=== PATIENT | male | born 1950 | race Caucasian/White ===

== ENCOUNTER → 2016-05-20 | Outpatient (CLI) | payer MEDICARE, BC ==
--- NOTE | 2016-05-20 13:45 | CT ---
EXAMINATION TYPE: CT angio abd aorta wo/w con DATE OF EXAM: 05/20/2016 12:11 PM COMPARISON: Previous study dated 06/03/2015 HISTORY: AAA CT DLP: 1266 mGycm Automated exposure control for dose reduction was used. TECHNIQUE: Performed with IV Contrast, patient injected with 100 mL of Omnipaque 350. Helical acquisition through the abdomen and pelvis was obtained with and without intravenous contrast . The data was reformatted in axial, coronal and sagittal projections. Three-dimensional volume rende red imaging was also performed at the CT scanner. FINDINGS: Visualized portions of the lungs are clear. There is no pleural or pericardial fluid. Within the abdomen, the liver, spleen and gallbladder are normal. Both adrenal glands are normal. Both kidneys demonstrate function and appear morphologically normal. The pancreas is unremarkable. The patient infrarenal abdominal aortic aneurysm which previously measured 4.8 cm today measures 5.2 cm in greatest transverse diameter. It extends to the bifurcation. Both common iliac arteries are ane urysmal with the right measuring 1.8 cm and the left measuring 1.5 cm. There is no significant retroperitoneal adenopathy. There is no iliac or inguinal adenopathy. There is a right hip prosthesis in place causing streak artifact within the pelvis. The bladder is pa rtially obscured. There are scattered diverticula within the sigmoid: The scattered diverticula elsewhere within the le ft side of the colon. The appendix appears normal. Small bowel loops appear normal. No free air and no free fluid is seen. There is a bilateral lysis at L5 with a grade 1 spondylolisthesis of L5 on S1. There is mild, diffuse hypertrophic spondylosis. IMPRESSION: 1. ENLARGING INFRARENAL ABDOMINAL AORTIC ANEURYSM WHICH NOW MEASURES 5.2 CM IN GREATEST TRANSVERSE DI AMETER. 2. 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 3. MINIMAL UNCOMPLICATED DIVERTICULOSIS OF THE SIGMOID COLON. 4. BILATERAL LYSIS AT L5 WITH A GRADE 1 SPONDYLOLISTHESIS OF L5 ON S1.
== END ==
LOC: RADCTMAIN 11:30
PROVIDERS: ATTEND Thoracic Surgery (Cardiothoracic Vascular Surgery)
DX: I71.4 Abdominal aortic aneurysm, without rupture (principal); K57.30 Diverticulosis of large intestine without perforation or abscess without bleeding
CPT/HCPCS: 75635; Q9967

== ENCOUNTER 2016-07-26 17:09 | Emergency (ER) | payer MEDICARE, BC ==
[2016-07-26 17:29] VITALS: TEMP 97.5
--- NOTE | 2016-07-26 19:00 | ED ---
General Adult HPI - General Chief complaint: Abdominal Pain Stated complaint: rectal bleeding/constipated Time Seen by Provider: 07/26/16 18:25 Source: patient, RN notes reviewed Mode of arrival: ambulatory Limitations: no limitations - History of Present Illness Initial comments: patient is a 65-year-old male presents to the emergency room for evaluation constipation. Patient states he hasn't had a bowel movement in the past 2 days. Patient states he tried taking Dulcolax laxative earlier this afternoon with no relief of symptoms. Patient does state he is still passing gas. Patient states that he is having rectal discomfort, itching and bleeding. Patient does state he has history of hemorrhoids. Patient states his hemorrhoids are acting up because of constipation. Patient denies any changes in diet. Patient denies taking any narcotics. Patient denies abdominal pain. Patient denies nausea vomiting. Patient denies history of abdominal surgeries or bowel obstruction. Patient denies chest pain or shortness of breath. Patient states he just wants to have a bowel movement. - Related Data Home Medications Medication Instructions Recorded Confirmed Aspirin 325 mg PO DAILY 07/26/16 07/26/16 Atenolol [Tenormin] 50 mg PO BID 07/26/16 07/26/16 Clopidogrel Bisulfate [Plavix] 75 mg PO DAILY 07/26/16 07/26/16 Colchicine [Colcrys] 0.6 mg PO DAILY PRN 07/26/16 07/26/16 Isosorbide Mononitrate ER [Imdur] 30 mg PO DAILY 07/26/16 07/26/16 Lisinopril [Prinivil] 10 mg PO DAILY 07/26/16 07/26/16 Nitroglycerin Sl Tabs [Nitrostat] 0.4 mg SUBLINGUAL Q5M PRN 07/26/16 07/26/16 Omeprazole [PriLOSEC] 20 mg PO DAILY 07/26/16 07/26/16 Rosuvastatin Calcium [Crestor] 40 mg PO HS 07/26/16 07/26/16 Previous Rx's Medication Instructions Recorded Hydrocortisone Suppository 25 mg RECTAL BID PRN #10 supp 07/26/16 [Anusol-Hc] Allergies Allergy/AdvReac Type Severity Reaction Status Date / Time No Known Allergies Allergy Verified 07/26/16 18:46 Review of Systems ROS Statement: Those systems with pertinent positive or pertinent negative responses have been documented in the HPI. ROS Other: All systems not noted in ROS Statement are negative. Past Medical History Past Medical History: Coronary Artery Disease (CAD), Hyperlipidemia, Hypertension, Myocardial Infarction ([place]) Additional Past Medical History / Comment(s): AAA History of Any Multi-Drug Resistant Organisms: None Reported Past Surgical History: Heart Catheterization With Stent, Joint Replacement Additional Past Surgical History / Comment(s): right hip replacement Past Psychological History: No Psychological Hx Reported Smoking Status: Former smoker Past Alcohol Use History: Occasional Past Drug Use History: None Reported General Exam - General Exam Comments Initial Comments: laying in exam room, no distress. Limitations: no limitations General appearance: alert, in no apparent distress Head exam: Present: atraumatic, normocephalic, normal inspection Eye exam: Present: normal appearance ENT exam: Present: normal exam Neck exam: Present: normal inspection Respiratory exam: Present: normal lung sounds bilaterally. Absent: respiratory distress Cardiovascular Exam: Present: regular rate, normal rhythm, normal heart sounds GI/Abdominal exam: Present: soft, normal bowel sounds. Absent: distended, tenderness, guarding, rebound, rigid Rectal exam: Present: normal rectal tone, hemorrhoids Extremities exam: Present: normal inspection Back exam: Present: normal inspection Neurological exam: Present: alert, oriented X3, CN II-XII intact, normal gait Psychiatric exam: Present: normal affect, normal mood Skin exam: Present: warm, dry, intact, normal color. Absent: rash Course Vital Signs 07/26/16 17:25 Temperature 97.5 F L Pulse Rate 72 Respiratory 20 Rate Blood Pressure 102/51 O2 Sat by Pulse 98 Oximetry Medical Decision Making - Medical Decision Making Patient is a 65-year-old male presents emergency room for evaluation of constipation. Patient given an enema was able to have a bowel movement. Patient states he is feeling better. Advised patient to continue drinking plenty of water and follow up with primary care provider. Return parameters discussed. Case discussed with Dr. Avalos. - Radiology Data Radiology results: report reviewed, image reviewed Disposition Clinical Impression: Constipation Disposition: HOME SELF-CARE Condition: Good Instructions: Constipation (ED), High Fiber Diet (ED) Additional Instructions: Drink plenty of water. Please follow up with primary care provider in 1-2 days. If any new symptom arises or symptoms worsen, return to ER as soon as possible. Prescriptions: Hydrocortisone Suppository [Anusol-Hc] 25 mg RECTAL BID PRN #10 supp PRN Reason: Pain Referrals: Donny Cottrell MD [Primary Care Provider] - 1-2 days
--- NOTE | 2016-07-26 19:05 | XR ---
EXAMINATION TYPE: XR abdomen 2V DATE OF EXAM: 07/26/2016 6:56 PM COMPARISON: NONE HISTORY: Rectal bleeding TECHNIQUE: 3 views FINDINGS: There is no sign of intestinal obstruction or pneumoperitoneum. Fecal pattern is normal. Th ere is no sign of a mass. There are no pathologic calcifications over the kidneys. Right hip prosthes is is noted. Lung bases are clear. IMPRESSION: Nonacute abdomen. Curvilinear calcification is noted in the abdomen related to abdominal aortic aneurysm that is also demonstrated on CT scan of 05/20/2016.
[2016-07-26 20:20] VITALS: BP 155/88; PULSE 68; RESP 18
== END 2016-07-26 20:25 | disposition home or self-care (01) ==
LOC: EC 17:09
DX: K59.00 Constipation, unspecified (principal); I25.10 Atherosclerotic heart disease of native coronary artery without angina pectoris; E78.5 Hyperlipidemia, unspecified; I10 Essential (primary) hypertension; I25.2 Old myocardial infarction; Z87.891 Personal history of nicotine dependence; Z79.01 Long term (current) use of anticoagulants; Z79.82 Long term (current) use of aspirin; Z79.899 Other long term (current) drug therapy
CPT/HCPCS: 74020; 99284

== ENCOUNTER 2016-08-19 07:45 | Inpatient (IN) | payer MEDICARE, BC ==
[2016-08-17 09:54] VITALS: BMI 25.8
[~2016-08-19 07:45] MED LIST: ALPRAZolam 0.25 MG TAB PO PRN; SODIUM CHLORIDE 0.9% 1,000 ML in EMPTY BAG 1 BAG IV ONE
[2016-08-19] MEDS ORDERED: LIDOCAINE URO-JET JELLY 2% 5 ML KIT ONE (10:35)
[2016-08-19] MEDS ORDERED: PROPOFOL 10 MG/ML 20 ML VIAL IV ONE (11:20)
[2016-08-19] MEDS ORDERED: HEPARIN SODIUM,PORCINE 5,000 UNIT/ML 1 ML VIAL ONE (11:20)
[2016-08-19] MEDS ORDERED: MIDAZOLAM 2 MG/2 ML VIAL ONE (11:20)
[2016-08-19] MEDS ORDERED: HYDROmorphone (PF) 1 MG/ML ONE (11:20)
[2016-08-19] MEDS ORDERED: fentaNYL (PF) 50 MCG/ML 2 ML AMP ONE (11:20)
[2016-08-19] MEDS ORDERED: GLYCOPYRROLATE 0.2 MG/ML 2 ML VIAL ONE (11:20)
[2016-08-19] MEDS ORDERED: KETAMINE 10 MG/ML 20 ML VIAL ONE (11:20)
[2016-08-19] MEDS ORDERED: ePHEDrine 50 MG/ML 1 ML AMP ONE (11:20)
[2016-08-19] MEDS ORDERED: LIDOCAINE 1% INJ 10MG/ML (20 ML MDV) ONE (11:20)
[2016-08-19] MEDS: LIDOCAINE 2% INJ 20 MG/ML SQ ONE ×2 (11:55→12:20)
[2016-08-19] MEDS ORDERED: IODIXANOL 320 MG/ML 100 ML INTRAARTER ONE (14:55)
[2016-08-19] MEDS ORDERED: SODIUM CHLORIDE 0.9% 1,000 ML IV SCH (15:45)
[2016-08-19] MEDS ORDERED: HYDROCORTISONE SUPPOSITORY 25 MG SUPP RECTAL PRN (15:47)
[2016-08-19] MEDS ORDERED: COLCHICINE 0.6 MG TAB PO PRN (15:47)
[2016-08-19] MEDS ORDERED: NITROGLYCERIN SL TABS 0.4 MG TAB SUBLINGUAL PRN (15:47)
--- NOTE | 2016-08-19 16:03 | P.PCN ---
Date of Procedure: 08/19/16 Preoperative Diagnosis: Postoperative Diagnosis: Procedure(s) Performed: Implants: Indications for Procedure: Operative Findings: Endovascular repair of abdominal aortic aneurysm Performing physician: Mateo Harding M.D., counter attendant Procedure performed #1 an abdominal aortogram #2 bilateral common and external iliacs angiogram #3 bilateral common femoral arteries angiogram #4 intravascular ultrasound of the aorta and bilateral iliacs #5 intravascular repair of abdominal aortic aneurysm with a stent graft Approach Right and left common femoral arteries Complication None Level of sedation The procedure was performed under general anesthesia and the patient was intubated. Procedure description After obtaining an informed consent the patient was brought to the cardiac laborer golf course. Sedation was initiated with anesthesiologist in the room using propofol. During the procedure the patient was intubated. The right common femoral artery as well as left common femoral artery was cannulated using micropuncture technique, the micropuncture wire passed easily, then I placed a 14-Senegalese sheath in the right common femoral artery. I did place a 10-Senegalese sheath in the left common femoral artery. Before to both sheaths were placed I did perform bilateral common femoral arteries angiogram to confirm the entry site to be in the common femoral artery segments. At that point anticoagulation was initiated and the patient was given a total of 8000s units of heparin IV. I did perform an abdominal aortic angiogram using 5-Senegalese pigtail catheter which was placed at the level of the renal arteries. After that I did load the 23 mm operation aortic body delivery system over the guidewire which was super stiff guidewire. I inserted the delivery system into the aorta and it was advanced to the implant radiopaque markers with about 1 cm proximal to the intended landing side. I did orient the aortic body to desired position for appropriate axis to contralateral aortic body limp. I retracted the delivery system outer sheath and told the sheath retraction knob met handle I verified that the radiopaque markers and long delivery system radiopaque markers were in correct position I deployed first segment of the proximal stent by turning first stent knob counterclockwise. Precisely I did reposition the implant radiopaque markers at final proximal landing side. I used contrast injection to confirm implant position relative to renal arteries. I retracted the angiographic catheter away from the proximal stent. I deployed the reminder of the proximal stent by turning second stent degrees counterclockwise and then steadily pulled. I removed the green filled From performing her injection port and I attached fille syringe to it I used fluoroscopy to intermittently observe filling of the graft with radiopaque fill polymer. After that I loaded 18 I1 60 iliac limb delivery system over the contralateral guidewire which was super stiff Amplatzer wire. I used continuous fluoroscopy guidance to insert iliac limb delivery system into the contra lateral limb. I confronted proximal and distal iliac limb radiopaque marker where at the appropriate location. I did after that to retract the sheath to deploy iliac limb while maintaining catheter and the position. For the ipsilateral limb I did insert 22 x 160 limb delivery system. I used continuous fluoroscopy guidance to insert iliac limb delivery system into the contra lateral limb. I confronted proximal and distal iliac limb radiopaque marker where at the appropriate location. I did after that to retract the sheath to deploy iliac limb while maintaining catheter and the position. Please refer to note regarding repairing the aneurysm of the right iliac artery. Description of Procedure:
[2016-08-19 16:10] LABS: Basophils % (A) 0 %; CHCM 32.2; Eosinophils # (A) 0.3 k/uL (0-0.7); Eosinophils % (A) 3 %; HDW 2.14; HGB 11.8 gm/dL (13.0-17.5); Luc # (Auto) 0.12; Luc % (Auto) 1; Lymphocytes # (A) 1.3 k/uL (1.0-4.8); Lymphocytes % (A) 12 %; MCH 32.9 pg (25.0-35.0); Macrocytosis Moderate; Mean Platelet Volume 7.4; Monocytes # (A) 0.5 k/uL (0-1.0); Monocytes % (A) 5 %; Neutrophils # (A) 7.8 k/uL (1.3-7.7); Neutrophils % (A) 78 %; RBC 3.59 m/uL (4.30-5.90); RDW 14.5 % (11.5-15.5); WBC (Perox) 10.34
[2016-08-19 16:36] LABS: Anion Gap 6 mmol/L; Blood Urea Nitrogen 9 mg/dL (9-20); Calcium 8.3 mg/dL (8.4-10.2); Carbon Dioxide 21 mmol/L (22-30); Chloride 112 mmol/L (98-107); Glucose 108 mg/dL (74-99); Non-African American GFR(MDRD) >60 (>60 ml/min/1.73 sqM); Potassium 3.9 mmol/L (3.5-5.1); Sodium 139 mmol/L (137-145)
--- NOTE | 2016-08-19 16:43 | P.OP ---
Date of Procedure: 08/19/16 Preoperative Diagnosis: Right iliac artery aneurysm Postoperative Diagnosis: Right iliac artery aneurysm and left femoral artery injury Procedure(s) Performed: Endo-grafting repair of right external iliac artery aneurysm and left femoral artery exposure and primary repair of common femoral artery injury Implants: Anesthesia: GETA Surgeon: Brett Blank Estimated Blood Loss (ml): 50 Pathology: none sent Condition: stable Indications for Procedure: Operative Findings: Description of Procedure: This patient and a hybrid endo-grafting suite it Archie Fernandez under the care of Dr. Harding for the endo-grafting repair of a abdominal aortic aneurysm during the procedure I was asked to involve myself as a vascular surgeon to deal with a right iliac artery aneurysm as well as a primary repair of a common femoral artery cannulation site first with the guidewire access through the right common femoral artery and sheath and iliac artery aneurysm was completely covered when I passed the aortic endo-grafting Endologix limb extension device into the right iliac artery we used a 12 mm a 140 mm ovulation X device the deployment was under fluoroscopic guidance and we covered the iliac aneurysm the internal iliac artery that can completely previously thrombosed once this was completed and Dr. Harding repaired the right common femoral with a Perclose device I was asked to cut down and expose the left common femoral artery to remove the sheath and to repair the common femoral artery injury this was done through a small incision electrocautery was utilized for hemostasis the sheath and guidewire were removed after we controlled the common femoral artery at the inguinal ligament the profunda and the superficial femoral arteries as well the hole in the Distal common femoral artery was primarily repaired with interrupted 60 and 5-0 Prolene sutures excellent backbleeding and venting was accomplished and inflow into the profundus and superficial femoral arteries was accomplished and documented with arterial Doppler intraoperatively once this was accomplished the wound was irrigated with antibiotic solution and closed in layers with Vicryl sutures and Steri-Strips C end of an operative report on patient Rob hairston Dr. Blank dictating from Julissa Fernandez on Archie thank you for typing
[2016-08-19 16:44] LABS: Glucose,Whole Blood 104 mg/dL (75-99)
[2016-08-19] MEDS: ATORVASTATIN 80 MG TAB PO SCH (21:52)
[2016-08-20 04:50] LABS: Non-African American GFR(MDRD) >60 (>60 ml/min/1.73 sqM)
[2016-08-20 06:28] LABS: ALT 19 U/L (21-72); AST 20 U/L (17-59); Alkaline Phosphatase 53 U/L (38-126); Anion Gap 6 mmol/L; Blood Urea Nitrogen 9 mg/dL (9-20); Carbon Dioxide 21 mmol/L (22-30); Chloride 107 mmol/L (98-107); Glucose 93 mg/dL (74-99); Potassium 3.6 mmol/L (3.5-5.1); Sodium 134 mmol/L (137-145); Total Bilirubin 0.8 mg/dL (0.2-1.3)
[2016-08-20] MEDS ORDERED: Potassium Replacement Protocol 1 EACH MISC MISCELLANE PRN (06:58)
[2016-08-20] MEDS ORDERED: HYDROmorphone 1 MG/ML 1 ML SYRINGE IVP PRN (06:59)
[2016-08-20] MEDS ORDERED: POTASSIUM CHLORIDE ER 20 MEQ TAB.ER PO ONE (07:00)
[2016-08-20 07:12] LABS: Basophils % (A) 0 %; CH 33.9; CHCM 32.5; Eosinophils # (A) 0.1 k/uL (0-0.7); Eosinophils % (A) 2 %; HCT 31.1 % (39.0-53.0); HDW 2.11; Luc # (Auto) 0.11; Luc % (Auto) 1; Lymphocytes # (A) 0.7 k/uL (1.0-4.8); Lymphocytes % (A) 7 %; MCH 33.6 pg (25.0-35.0); MCV 104.9 fL (80.0-100.0); Macrocytosis Moderate; Mean Platelet Volume 8.5; Monocytes # (A) 0.7 k/uL (0-1.0); Monocytes % (A) 7 %; Neutrophils # (A) 7.8 k/uL (1.3-7.7); Neutrophils % (A) 82 %; RBC 2.96 m/uL (4.30-5.90); RDW 14.5 % (11.5-15.5); WBC 9.5 k/uL (3.8-10.6); WBC (Perox) 9.26
[2016-08-20] MEDS: PANTOPRAZOLE 40 MG TABLET PO SCH (07:44)
[2016-08-20] MEDS: LISINOPRIL 10 MG TAB PO SCH (07:45)
[2016-08-20] MEDS: amLODIPine 5 MG TAB PO SCH (07:45)
[2016-08-20] MEDS: ASPIRIN 325 MG TAB PO SCH (07:45)
[2016-08-20] MEDS: ISOSORBIDE MONONITRATE ER 30 MG TAB.ER.24H PO SCH (07:45)
--- NOTE | 2016-08-20 07:52 | IR ---
Fluoroscopy HISTORY: Pain 38.2 minutes fluoroscopy time supplied to the referring clinician. 750 intraoperative C-arm images d ocument the procedure. See dictated report from cardiology.
--- NOTE | 2016-08-20 08:56 | P.PN ---
Subjective Principal diagnosis: Right iliac artery aneurysm and left femoral artery injury POD #1 endograft and repair of right external iliac artery aneurysm and left femoral artery exposure and primary repair of common femoral artery injury Patient is currently ambulating in the velez in no acute distress. Objective - Vital Signs Vital signs: Vital Signs Temp 98.9 F 08/20/16 04:00 Pulse 65 08/20/16 07:00 Resp 16 08/20/16 07:00 BP 126/68 08/20/16 07:00 Pulse Ox 93 L 08/20/16 07:00 Intake & Output 08/19/16 08/20/16 08/20/16 18:59 06:59 18:59 Intake Total 400 1200 100 Output Total 200 360 Balance 200 840 100 Weight 74 kg Intake: IV 400 1200 100 Sodium Chloride 0.9% 1, 200 1200 100 000 ml @ 100 mls/hr IV . Q10H [facility] Rx#:[id number] Output: Urine 100 360 Estimated Blood Loss 100 Other: Voiding Method Indwelling Catheter Indwelling Catheter # Voids 0 0 - Constitutional General appearance: Present: cooperative, no acute distress - Respiratory Details: Lungs sounds clear to auscultation. Respirations even, nonlabored. Currently on room air with oxygen saturation 93%. - Cardiovascular Details: S1, S2 present. Regular rate and rhythm, normal sinus rhythm on telemetry. Bilateral groins soft, nontender, covered with clean, dry, intact dressings. - Gastrointestinal Gastrointestinal Comment(s): Abdomen soft, nontender, nondistended. Active bowel sounds 4 quadrants. Tolerating diet. - Genitourinary Genitourinary Comment(s): Lewis discontinued this morning. Patient has voided clear, yellow urine. - Musculoskeletal Musculoskeletal: Present: gait normal, strength equal bilaterally - Psychiatric Psychiatric: Present: A&O x's 3, appropriate affect, intact judgment & insight - Allied health notes Allied health notes reviewed: nursing - Labs CBC & Chem 7: 08/20/16 04:03 08/20/16 04:03 Labs: Abnormal Lab Results - Last 24 Hours (Table) 08/19/16 08/19/16 08/19/16 Range/Units 15:56 15:56 16:42 RBC 3.59 L (4.30-5.90) m/uL Hgb 11.8 L (13.0-17.5) gm/dL Hct 38.0 L (39.0-53.0) % MCV 106.0 H (80.0-100.0) fL Plt Count (150-450) k/uL Neutrophils # 7.8 H (1.3-7.7) k/uL Lymphocytes # (1.0-4.8) k/uL Sodium (137-145) mmol/L Chloride 112 H (98-107) mmol/L Carbon Dioxide 21 L (22-30) mmol/L Glucose 108 H (74-99) mg/dL POC Glucose (mg/dL) 104 H (75-99) mg/dL Calcium 8.3 L (8.4-10.2) mg/dL Magnesium (1.6-2.3) mg/dL ALT (21-72) U/L Total Protein (6.3-8.2) g/dL Albumin (3.5-5.0) g/dL 08/20/16 08/20/16 08/20/16 Range/Units 04:03 04:03 04:03 RBC 2.96 L (4.30-5.90) m/uL Hgb 10.0 L D (13.0-17.5) gm/dL Hct 31.1 L (39.0-53.0) % MCV 104.9 H (80.0-100.0) fL Plt Count 128 L (150-450) k/uL Neutrophils # 7.8 H (1.3-7.7) k/uL Lymphocytes # 0.7 L (1.0-4.8) k/uL Sodium 134 L (137-145) mmol/L Chloride (98-107) mmol/L Carbon Dioxide 21 L (22-30) mmol/L Glucose (74-99) mg/dL POC Glucose (mg/dL) (75-99) mg/dL Calcium 8.0 L (8.4-10.2) mg/dL Magnesium 1.2 L (1.6-2.3) mg/dL ALT 19 L (21-72) U/L Total Protein 5.0 L (6.3-8.2) g/dL Albumin 2.4 L (3.5-5.0) g/dL Assessment and Plan (1) Abdominal aortic aneurysm Status: Acute (2) Aneurysm of right iliac artery Status: Acute (3) CAD (coronary artery disease) Status: Acute (4) Tobacco dependence in remission Status: Acute (5) Hypertension Status: Acute (6) Hyperlipidemia Status: Acute (7) Peripheral vascular disease Status: Acute (8) Ischemic cardiomyopathy Status: Acute Plan: 1. Continue current medical management per cardiology. 2. Encourage incentive spirometry use. 3. Increase activity, continue to ambulate in hallway. 4. Pain control with ordered medications. 5. Monitor groin site. 6. More recommendations as patient progresses. Time with Patient: Greater than 30
[2016-08-20] MEDS ORDERED: ATENOLOL 50 MG TAB PO SCH (09:00)
--- NOTE | 2016-08-20 11:24 | P.PN ---
Progress Note - Text This is a pleasant 65-year-old gentleman was admitted to the hospital yesterday and underwent successful endovascular repair of abdominal aortic aneurysm along with successful repair of right iliac aneurysm with a good angiographic results. The procedure was performed from the right and left common femoral arteries. We did the procedure from the right groin percutaneously and from the left groin we had to do cutdown of the left common femoral arteries. On follow-up with the patient today, he is doing clinically very well and he is asymptomatic. Both groins seems to be soft and nontender and without any bruises. The hemoglobin seems to be stable. I am planning to keep the patient overnight one more day, continue monitor the vitals and continue monitor the hemoglobin, and follow-up with the patient tomorrow morning for possible discharge home tomorrow.
[2016-08-20] MEDS ORDERED: Magnesium Replacement Protocol 1 EACH MISC MISCELLANE PRN (12:56)
[2016-08-20] MEDS: MAGNESIUM SULFATE-D5W PMX 1 GM in DEXTROSE/WATER 1 100ML.BAG IVPB SCH ×3 (16:02→18:41)
[2016-08-20] MEDS: ATORVASTATIN 80 MG TAB PO SCH (23:02)
[2016-08-21 06:36] LABS: Basophils % (A) 0 %; CH 33.7; Eosinophils # (A) 0.2 k/uL (0-0.7); Eosinophils % (A) 3 %; HCT 30.8 % (39.0-53.0); HDW 2.16; HGB 10.6 gm/dL (13.0-17.5); Luc # (Auto) 0.26; Luc % (Auto) 3; Lymphocytes # (A) 1.3 k/uL (1.0-4.8); Lymphocytes % (A) 15 %; MCH 35.3 pg (25.0-35.0); MCHC 34.4 g/dL (31.0-37.0); MCV 102.7 fL (80.0-100.0); Macrocytosis Slight; Mean Platelet Volume 7.6; Monocytes # (A) 0.7 k/uL (0-1.0); Monocytes % (A) 8 %; Neutrophils # (A) 6.2 k/uL (1.3-7.7); Neutrophils % (A) 71 %; RDW 14.3 % (11.5-15.5); WBC 8.7 k/uL (3.8-10.6); WBC (Perox) 8.74
[2016-08-21] MEDS: PANTOPRAZOLE 40 MG TABLET PO SCH (06:36)
[2016-08-21 06:56] LABS: Anion Gap 6 mmol/L; Blood Urea Nitrogen 9 mg/dL (9-20); Calcium 8.2 mg/dL (8.4-10.2); Carbon Dioxide 24 mmol/L (22-30); Chloride 108 mmol/L (98-107); Glucose 85 mg/dL (74-99); Magnesium 1.9 mg/dL (1.6-2.3); Non-African American GFR(MDRD) >60 (>60 ml/min/1.73 sqM); Potassium 3.7 mmol/L (3.5-5.1); Sodium 138 mmol/L (137-145)
[2016-08-21] MEDS ORDERED: BISACODYL 5 MG TABLET.DR PO STA (07:59)
[2016-08-21] MEDS ORDERED: POTASSIUM CHLORIDE ER 20 MEQ TAB.ER PO SCH (08:00)
[2016-08-21 08:05] VITALS: RESP 16; TEMP 97.4
--- NOTE | 2016-08-21 08:09 | P.PN ---
Progress Note - Text CV Surgery Nursing Principal diagnosis: Right iliac artery aneurysm and left femoral artery injury POD #2 Endo-grafting repair of right external iliac artery aneurysm and left femoral artery exposure and primary repair of common femoral artery injury. Patient awake and alert, no distress noted, he is complaining of some discomfort when he is urinating to his left groin area. He reports that he has been ambulating in the hallway without difficulty and denies any complaints of pain to his legs with ambulation. Vital Signs: Afebrile Vital Signs - 24 hr 08/20/16 08/20/16 08/20/16 08:30 09:00 09:30 Temperature Pulse Rate 68 63 59 L Pulse Rate [ Ems Educator ] Respiratory 18 18 18 Rate Blood Pressure 110/58 105/56 110/55 Blood Pressure [Left Arm] O2 Sat by Pulse 96 97 99 Oximetry 08/20/16 08/20/16 08/20/16 10:00 10:30 11:15 Temperature Pulse Rate 59 L 68 Pulse Rate [ 56 L Ems Educator ] Respiratory 18 18 16 Rate Blood Pressure 113/58 119/64 Blood Pressure 142/69 [Left Arm] O2 Sat by Pulse 99 97 99 Oximetry 08/20/16 08/20/16 08/20/16 16:00 20:00 23:23 Temperature 98 F 97.7 F 97.0 F L Pulse Rate Pulse Rate [ 72 75 87 Ems Educator ] Respiratory 16 16 16 Rate Blood Pressure Blood Pressure 114/58 134/61 157/87 [Left Arm] O2 Sat by Pulse 96 95 96 Oximetry 08/21/16 04:00 Temperature 99.2 F Pulse Rate Pulse Rate [ 64 Ems Educator ] Respiratory 18 Rate Blood Pressure Blood Pressure 137/65 [Left Arm] O2 Sat by Pulse 94 L Oximetry Labs: Short CBC 08/21/16 Range/Units 06:00 WBC 8.7 (3.8-10.6) k/uL Hgb 10.6 L (13.0-17.5) gm/dL Hct 30.8 L (39.0-53.0) % Plt Count 137 L (150-450) k/uL Neutrophils # 6.2 (1.3-7.7) k/uL BMP 08/20/16 08/21/16 15:01 06:00 Sodium 138 Potassium 3.9 3.7 Chloride 108 H Carbon Dioxide 24 BUN 9 Creatinine 0.86 Glucose 85 Calcium 8.2 L Lungs: Essentially clear throughout, diminished to his bilateral bases. Respirations are symmetrical and unlabored. O2 sat: 94% on room air. I/S: 2000 mL, reviewed with the patient important of using his incentive spirometry every hour while awake. The patient did give a good return and demonstration on his incentive spirometry. Heart: S1S2, regular rhythm and rate, negative for S3, gallop or murmur. Remote telemetry showing normal sinus rhythm heart rate 62. Right groin incision clean, soft, dry and intact. Dressing is clean dry and intact. Left groin incision soft, with ecchymosis, no drainage noted. Positive palpable pulses to his bilateral dorsalis pedis and posterior tibials. His bilateral feet are warm to touch. Abdomen: Soft, nontender. Positive bowel sounds present in all 4 quadrants. U/O: Adequate, clear yellow urine. 24 hr Total: Intake & Output 08/19/16 08/20/16 08/21/16 08/22/16 06:59 06:59 06:59 06:59 Intake Total 1600 400 Output Total 560 1070 Balance 1040 -670 Weight 74 kg 74 kg Active Medications Alprazolam (Xanax) 0.25 mg PO Q6HR PRN PRN Reason: Mild Anxiety Last Admin: 08/20/16 00:24 Dose: 0.25 mg Amlodipine Besylate (Norvasc) 5 mg PO DAILY [facility] Last Admin: 08/20/16 07:45 Dose: 5 mg Aspirin (Aspirin) 325 mg PO DAILY [facility] Last Admin: 08/20/16 07:45 Dose: 325 mg Atenolol (Tenormin) 50 mg PO DAILY [facility] Atorvastatin Calcium (Lipitor) 80 mg PO HS [facility] Last Admin: 08/20/16 23:02 Dose: 80 mg Colchicine (Colcrys) 0.6 mg PO DAILY PRN PRN Reason: GOUT Hydrocortisone Acetate (Anusol-Hc) 25 mg RECTAL BID PRN PRN Reason: RECTAL Pain Hydromorphone HCl (Dilaudid) 1 mg IVP Q4HR PRN PRN Reason: Severe Pain Last Admin: 08/20/16 18:44 Dose: 1 mg Isosorbide Mononitrate (Imdur) 30 mg PO DAILY [facility] Last Admin: 08/20/16 07:45 Dose: 30 mg Lisinopril (Zestril) 10 mg PO DAILY [facility] Last Admin: 08/20/16 07:45 Dose: 10 mg Miscellaneous Information (Potassium Per Protocol) 1 each MISCELLANE DAILY PRN ; Protocol PRN Reason: Per Protocol Miscellaneous Information (Magnesium Per Protocol) 1 each MISCELLANE DAILY PRN ; Protocol PRN Reason: Per Protocol Nitroglycerin (Nitrostat) 0.4 mg SUBLINGUAL Q5M PRN PRN Reason: Chest Pain Pantoprazole Sodium (Protonix) 40 mg PO [id number] [facility] Last Admin: 08/21/16 06:36 Dose: 40 mg Plan: 1. Continue current medical management per Dr. Harding's recommendations. 2. Encourage incentive spirometry use every hour while awake. 3. Increase activity, continue to ambulate in hallway. 4. Pain control per current when necessary orders. 5. Monitor groin sites. 6. Discharge planning in place.
[2016-08-21] MEDS: ASPIRIN 325 MG TAB PO SCH (08:37)
[2016-08-21] MEDS: LISINOPRIL 10 MG TAB PO SCH (08:37)
[2016-08-21] MEDS: ISOSORBIDE MONONITRATE ER 30 MG TAB.ER.24H PO SCH (08:37)
[2016-08-21] MEDS: amLODIPine 5 MG TAB PO SCH (08:37)
--- NOTE | 2016-08-21 11:39 | P.DS ---
Providers Date of admission: 08/19/16 10:19 Attending physician: Mateo Harding Consults: 08/20/16 11:08 Consult Physician Routine Consulting Provider: Mateo Harding Consult Reason/Comments: aortic stent placement Do you want consulting provider notified?: Already Contacted Primary care physician: [facility] Course: This is a pleasant 65-year-old gentleman was admitted to the hospital 2 days ago and underwent endovascular repair of abdominal aortic aneurysm and right iliac aneurysm. The procedure was performed from the right groin as well as from the left groin. From the right groin I did do a percutaneous closure and from the left groin we did cut down of the left common femoral arteries. Both groins are soft with mild tenderness. From the cardiovascular standpoint of view, the patient can be discharged home. I will follow-up with him in a week in the office. Plan - Discharge Summary New Discharge Prescriptions: Continue Omeprazole [PriLOSEC] 20 mg PO DAILY Nitroglycerin Sl Tabs [Nitrostat] 0.4 mg SUBLINGUAL Q5M PRN PRN Reason: Chest Pain Lisinopril [Prinivil] 10 mg PO DAILY Isosorbide Mononitrate ER [Imdur] 30 mg PO DAILY Colchicine [Colcrys] 0.6 mg PO DAILY PRN PRN Reason: GOUT Rosuvastatin Calcium [Crestor] 40 mg PO HS Atenolol [Tenormin] 50 mg PO DAILY Aspirin 325 mg PO DAILY Hydrocortisone Suppository [Anusol-Hc] 25 mg RECTAL BID PRN #10 supp PRN Reason: Pain amLODIPine [Norvasc] 5 mg PO DAILY Discharge Medication List Aspirin 325 mg PO DAILY 07/26/16 [History] Atenolol [Tenormin] 50 mg PO DAILY 07/26/16 [History] Colchicine [Colcrys] 0.6 mg PO DAILY PRN 07/26/16 [History] Hydrocortisone Suppository [Anusol-Hc] 25 mg RECTAL BID PRN #10 supp 07/26/16 [ Rx] Isosorbide Mononitrate ER [Imdur] 30 mg PO DAILY 07/26/16 [History] Lisinopril [Prinivil] 10 mg PO DAILY 07/26/16 [History] Nitroglycerin Sl Tabs [Nitrostat] 0.4 mg SUBLINGUAL Q5M PRN 07/26/16 [History] Omeprazole [PriLOSEC] 20 mg PO DAILY 07/26/16 [History] Rosuvastatin Calcium [Crestor] 40 mg PO HS 07/26/16 [History] amLODIPine [Norvasc] 5 mg PO DAILY 08/17/16 [History] Follow up Appointment(s)/Referral(s): Mateo Harding MD [STAFF PHYSICIAN] - 1 Week Juaquin Ballard DO [Doctor of Osteopathic Medicine] - 1 Week
[2016-08-21 12:11] VITALS: BP 129/69; PULSE 65
== END 2016-08-21 13:19 | disposition home or self-care (01) | DRG 269 ==
LOC: 2ORMAIN 10:19 → EDSTATUS 11:30 → 6ICU 16:40 → 6SEL 08-20 11:14
PROVIDERS: ADMIT Internal Medicine Interventional Cardiology; ATTEND Internal Medicine Interventional Cardiology
PROC: 04VH3DZ Restriction of Right External Iliac Artery with Intraluminal Device, Percutaneous Approach (ICD-10-PCS; 2016-08-19)
PROC: B4101ZZ Fluoroscopy of Abdominal Aorta using Low Osmolar Contrast (ICD-10-PCS; 2016-08-19)
PROC: 04V03DZ Restriction of Abdominal Aorta with Intraluminal Device, Percutaneous Approach (ICD-10-PCS; principal; 2016-08-19 11:20)
PROC: 04QL3ZZ Repair Left Femoral Artery, Percutaneous Approach (ICD-10-PCS; 2016-08-19 11:20)
DX: I71.4 Abdominal aortic aneurysm, without rupture (principal); I72.3 Aneurysm of iliac artery; I07.1 Rheumatic tricuspid insufficiency; I10 Essential (primary) hypertension; I25.5 Ischemic cardiomyopathy; I73.9 Peripheral vascular disease, unspecified; I65.23 Occlusion and stenosis of bilateral carotid arteries; E78.2 Mixed hyperlipidemia; I25.10 Atherosclerotic heart disease of native coronary artery without angina pectoris; F17.211 Nicotine dependence, cigarettes, in remission; Z79.02 Long term (current) use of antithrombotics/antiplatelets; Z79.82 Long term (current) use of aspirin; Z79.899 Other long term (current) drug therapy; Z96.649 Presence of unspecified artificial hip joint; Z95.5 Presence of coronary angioplasty implant and graft
CPT/HCPCS: 34805; 80048; 80053; 83735; 84132; 85025; 86850; 86900; 86901

== ENCOUNTER → 2016-10-08 | Outpatient (CLI) | payer MEDICARE, BC ==
--- NOTE | 2016-10-08 11:48 | CT ---
EXAMINATION TYPE: CT angio abd aorta wo/w con DATE OF EXAM: 10/08/2016 COMPARISON: NONE HISTORY: Abdominal aortic aneurysm with repair CT DLP: 751.0 mGycm, Automated Exposure Control for Dose Reduction was Utilized. CONTRAST: CT scan of the abdomen and pelvis is performed with oral and with IV Contrast, patient injected with 100 mL of Omnipaque 350. FINDINGS: LUNG BASES: No significant abnormality is appreciated. LIVER/GB: No significant abnormality is appreciated. PANCREAS: No significant abnormality is seen. SPLEEN: No significant abnormality is seen. ADRENALS: No significant abnormality is seen. KIDNEYS: Renal vascular calcifications are seen with no evidence of nephrolithiasis or hydronephrosis . Mild nonspecific perinephric fat stranding is present. BOWEL: There is redemonstration of a few sigmoid diverticula without pericolonic fat stranding.. PROSTATE/SEMINAL VESICLES: Again the prostate gland is prominent in size and heterogenous containing central gland calcifications. Fat filled bilateral inguinal hernias are seen.. LYMPH NODES: No greater than 1cm abdominal or pelvic lymph nodes are appreciated. OSSEOUS STRUCTURES: No suspicious abnormality is seen. Right hip prosthesis is again noted. Mild deg enerative changes are appreciated of the thoracolumbar and lumbosacral spine. Right 1 anterolisthesis of L5 on S1 is again appreciated. VASCULATURE: Dual-lumen aortoiliac endograft is present beginning below the renal arteries and termin ating in the left common iliac artery and right external iliac artery. There is stability of the infr arenal [place] abdominal aortic aneurysmal sac measuring 5.2 x 5.2 cm in anterior posterior by transve rse dimension. This extends 9.0 cm in craniocaudal dimension. This had enlarged from the prior exam o f 06/03/2015 where it measured 4.8 x 4.8 x 8.3 cm suggestive of Endotension. [place] common iliac arter ies are again aneurysmal but stable measuring 2.1 cm on the right and 1.6 cm on the left. [place] high density and calcifications are seen just proximal to the aortoiliac graft bifurcation at the level of the inferior pole of the kidneys, unchanged from the prior exam thought to relate to chronic focal dissection as calcifications which are curvilinear are also seen just superior to this suggestive of an intimal calcified flap. After administration of intravenous contrast there is no evidence of contrast within the [place] aorti c lumen to suggest endoleak. IMPRESSION: 1. Stable infrarenal abdominal aortic aneurysm and common iliac aneurysms containing a dual lumen aor toiliac endograft with no evidence of endoleak. Prior enlargement of the [place] aortic lumen suggeste d Endotension. Curvilinear calcifications in a short segment may represent chronic intimal dissection but is unchanged.
== END | disposition home or self-care (01) ==
LOC: RADCTMAIN 10:41
PROVIDERS: ATTEND Internal Medicine Interventional Cardiology
DX: I71.4 Abdominal aortic aneurysm, without rupture (principal); I72.3 Aneurysm of iliac artery; I70.0 Atherosclerosis of aorta
CPT/HCPCS: 75635; Q9967

== ENCOUNTER 2016-11-10 11:05 | Inpatient (IN) | payer MEDICARE, BC ==
[2016-11-10] MEDS ORDERED: SODIUM CHLORIDE 0.9% 500 ML IV STA (11:27)
[2016-11-10] MEDS ORDERED: RX INFO: IV CONTRAST WAS GIVEN 1 EACH MISC MISCELLANE PRN (11:27)
--- NOTE | 2016-11-10 11:29 | ED ---
General Adult HPI - General Chief complaint: Neuro Symptoms/Deficit Stated complaint: dizzy/altered mental Time Seen by Provider: 11/10/16 11:05 Source: patient, RN notes reviewed Mode of arrival: wheelchair Limitations: no limitations - History of Present Illness Initial comments: This is a 66-year-old male presents emergency Department with forgetfulness according to the . She states she woke up about 8:00 and when she started asking questions are restarted trying to use a TV he couldn't remember how to do it and he was unable to answer all the questions. 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 Patient had no facial droop no slurred speech he does not complain of any blurred vision however he cannot read at this time. Patient has no numbness or weakness. The onset of the symptoms is unknown because he woke up like this. Patient denies any pain patient denies headache patient denies any numbness or weakness. Patient denies any chest pain palpitations difficulty breathing shortness of breath. Patient denies any abdominal pain. - Related Data Home Medications Medication Instructions Recorded Confirmed Aspirin 325 mg PO DAILY 07/26/16 11/10/16 Atenolol [Tenormin] 50 mg PO DAILY 07/26/16 11/10/16 Colchicine [Colcrys] 0.6 mg PO DAILY 07/26/16 11/10/16 Isosorbide Mononitrate ER [Imdur] 30 mg PO DAILY 07/26/16 11/10/16 Lisinopril [Prinivil] 10 mg PO DAILY 07/26/16 11/10/16 Nitroglycerin Sl Tabs [Nitrostat] 0.4 mg SUBLINGUAL Q5M PRN 07/26/16 11/10/16 Omeprazole [PriLOSEC] 20 mg PO AC-BRKFST 07/26/16 11/10/16 Rosuvastatin Calcium [Crestor] 40 mg PO DAILY 07/26/16 11/10/16 Docusate [Colace] 100 mg PO DAILY PRN 11/10/16 11/10/16 Allergies Allergy/AdvReac Type Severity Reaction Status Date / Time No Known Allergies Allergy Verified 11/10/16 11:32 Review of Systems ROS Statement: Those systems with pertinent positive or pertinent negative responses have been documented in the HPI. ROS Other: All systems not noted in ROS Statement are negative. Past Medical History Past Medical History: Coronary Artery Disease (CAD), GERD/Reflux, Hyperlipidemia , Hypertension, Myocardial Infarction ([place]) Additional Past Medical History / Comment(s): AAA-getting larger, herniated disc Last Myocardial Infarction Date:: unknown History of Any Multi-Drug Resistant Organisms: None Reported Past Surgical History: Heart Catheterization With Stent, Joint Replacement Additional Past Surgical History / Comment(s): right hip replacement Past Anesthesia/Blood Transfusion Reactions: No Reported Reaction Date of Last Stent Placement:: 2011 Past Psychological History: No Psychological Hx Reported Smoking Status: Former smoker - Past Family History Father Family Medical History: Cancer General Exam - General Exam Comments Initial Comments: GENERAL: Patient is well-developed and well-nourished. Patient is nontoxic and well- hydrated and is in no acute distress. ENT: Neck is soft and supple. No significant lymphadenopathy is noted. Oropharynx is clear. Moist mucous membranes. Neck has full range of motion without eliciting any pain. EYES: The sclera were anicteric and conjunctiva were pink and moist. Extraocular movements were intact and pupils were equal round and reactive to light. Eyelids were unremarkable. PULMONARY: Unlabored respirations. Good breath sounds bilaterally. No audible rales rhonchi or wheezing was noted. CARDIOVASCULAR: There is a regular rate and rhythm without any murmurs gallops or rubs. ABDOMEN: Soft and nontender with normal bowel sounds. No palpable organomegaly was noted. There is no palpable pulsatile mass. SKIN: Skin is clear with no lesions or rashes and otherwise unremarkable. NEUROLOGIC: Patient is alert and oriented x3. Cranial nerves II through XII are grossly intact. Motor and sensory are also intact. Normal speech, volume and content. Symmetrical smile. Cerebellar exam grossly intact. Patient does have problems remembering certain events in his past and he is unable to read which is abnormal according to . MUSCULOSKELETAL: Normal extremities with adequate strength and full range of motion. LYMPHATICS: No significant lymphadenopathy is noted PSYCHIATRIC: Normal psychiatric evaluation. Normal interpersonal interactions appears functionally intact in deals appropriately with others. No signs of depression. No signs of anxiety. No delusions. No hallucinations. Limitations: no limitations Course Vital Signs 11/10/16 11/10/16 11/10/16 11:08 11:25 11:40 Temperature 97.2 F L Pulse Rate 60 62 62 Respiratory 17 16 16 Rate Blood Pressure 145/70 162/81 147/79 O2 Sat by Pulse 98 97 98 Oximetry 11/10/16 11/10/16 11:55 13:03 Temperature Pulse Rate 60 70 Respiratory 16 16 Rate Blood Pressure 155/88 155/77 O2 Sat by Pulse 98 97 Oximetry Medical Decision Making - Medical Decision Making EKG shows a normal sinus rhythm 82 bpm [place] interval 170 QRS is under 48 QT interval is 472 QTC is 479. Patient's EKG shows a right bundle branch block is no ST segment elevation or depression. Chest x-ray shows no acute abnormality. Head CT and CT of the neck and head show no acute abnormality. - Lab Data Result diagrams: 11/10/16 11:25 11/10/16 11:25 Lab Results 11/10/16 11/10/16 11/10/16 Range/Units 11:25 11:25 11:25 WBC 5.1 (3.8-10.6) k/uL RBC 4.35 (4.30-5.90) m/uL Hgb 14.6 (13.0-17.5) gm/dL Hct 42.9 (39.0-53.0) % MCV 98.6 (80.0-100.0) fL MCH 33.5 (25.0-35.0) pg MCHC 34.0 (31.0-37.0) g/dL RDW 15.0 (11.5-15.5) % Plt Count 225 (150-450) k/uL Neutrophils % 69 % Lymphocytes % 16 % Monocytes % 8 % Eosinophils % 4 % Basophils % 1 % Neutrophils # 3.5 (1.3-7.7) k/uL Lymphocytes # 0.8 L (1.0-4.8) k/uL Monocytes # 0.4 (0-1.0) k/uL Eosinophils # 0.2 (0-0.7) k/uL Basophils # 0.0 (0-0.2) k/uL PT (9.0-12.0) sec INR (<1.2) APTT (22.0-30.0) sec Sodium 135 L (137-145) mmol/L Potassium 4.9 (3.5-5.1) mmol/L Chloride 103 (98-107) mmol/L Carbon Dioxide 21 L (22-30) mmol/L Anion Gap 11 mmol/L BUN 9 (9-20) mg/dL Creatinine 0.90 (0.66-1.25) mg/dL Est GFR (MDRD) Af Amer >60 (>60 ml/min/1.73 sqM) Est GFR (MDRD) Non-Af >60 (>60 ml/min/1.73 sqM) Glucose 83 (74-99) mg/dL Calcium 9.1 (8.4-10.2) mg/dL Magnesium (1.6-2.3) mg/dL Total Bilirubin 0.3 (0.2-1.3) mg/dL AST 26 (17-59) U/L ALT 27 (21-72) U/L Alkaline Phosphatase 78 (38-126) U/L Total Creatine Kinase 59 (55-170) U/L CK-MB (CK-2) 0.6 (0.0-2.4) ng/mL CK-MB (CK-2) Rel Index 1.0 Troponin I <0.012 (0.000-0.034) ng/mL Total Protein 7.0 (6.3-8.2) g/dL Albumin 3.9 (3.5-5.0) g/dL Serum Alcohol mg/dL 11/10/16 11/10/16 11/10/16 Range/Units 11:25 11:25 13:06 WBC (3.8-10.6) k/uL RBC (4.30-5.90) m/uL Hgb (13.0-17.5) gm/dL Hct (39.0-53.0) % MCV (80.0-100.0) fL MCH (25.0-35.0) pg MCHC (31.0-37.0) g/dL RDW (11.5-15.5) % Plt Count (150-450) k/uL Neutrophils % % Lymphocytes % % Monocytes % % Eosinophils % % Basophils % % Neutrophils # (1.3-7.7) k/uL Lymphocytes # (1.0-4.8) k/uL Monocytes # (0-1.0) k/uL Eosinophils # (0-0.7) k/uL Basophils # (0-0.2) k/uL PT 10.3 (9.0-12.0) sec INR 1.0 (<1.2) APTT 27.7 (22.0-30.0) sec Sodium (137-145) mmol/L Potassium (3.5-5.1) mmol/L Chloride (98-107) mmol/L Carbon Dioxide (22-30) mmol/L Anion Gap mmol/L BUN (9-20) mg/dL Creatinine (0.66-1.25) mg/dL Est GFR (MDRD) Af Amer (>60 ml/min/1.73 sqM) Est GFR (MDRD) Non-Af (>60 ml/min/1.73 sqM) Glucose (74-99) mg/dL Calcium (8.4-10.2) mg/dL Magnesium 1.4 L (1.6-2.3) mg/dL Total Bilirubin (0.2-1.3) mg/dL AST (17-59) U/L ALT (21-72) U/L Alkaline Phosphatase (38-126) U/L Total Creatine Kinase (55-170) U/L CK-MB (CK-2) (0.0-2.4) ng/mL CK-MB (CK-2) Rel Index Troponin I (0.000-0.034) ng/mL Total Protein (6.3-8.2) g/dL Albumin (3.5-5.0) g/dL Serum Alcohol 24 mg/dL Disposition Clinical Impression: Cerebrovascular accident, Alcoholism Disposition: ADMITTED IP TO THIS HOSP Referrals: Donny Cottrell MD [Primary Care Provider] - 1-2 days Time of Disposition: 14:35
[2016-11-10 11:54] LABS: ALT 27 U/L (21-72); AST 26 U/L (17-59); Alkaline Phosphatase 78 U/L (38-126); Anion Gap 11 mmol/L; Basophils % (A) 1 %; Blood Urea Nitrogen 9 mg/dL (9-20); CH 32.8; CHCM 33.4; Calcium 9.1 mg/dL (8.4-10.2); Carbon Dioxide 21 mmol/L (22-30); Chloride 103 mmol/L (98-107); Eosinophils # (A) 0.2 k/uL (0-0.7); Eosinophils % (A) 4 %; Glucose 83 mg/dL (74-99); HCT 42.9 % (39.0-53.0); HDW 2.01; HGB 14.6 gm/dL (13.0-17.5); Luc # (Auto) 0.15; Luc % (Auto) 3; Lymphocytes # (A) 0.8 k/uL (1.0-4.8); Lymphocytes % (A) 16 %; MCH 33.5 pg (25.0-35.0); MCV 98.6 fL (80.0-100.0); Mean Platelet Volume 7.2; Monocytes # (A) 0.4 k/uL (0-1.0); Monocytes % (A) 8 %; Neutrophils # (A) 3.5 k/uL (1.3-7.7); Neutrophils % (A) 69 %; Non-African American GFR(MDRD) >60 (>60 ml/min/1.73 sqM); Potassium 4.9 mmol/L (3.5-5.1); RBC 4.35 m/uL (4.30-5.90); Sodium 135 mmol/L (137-145); Total Bilirubin 0.3 mg/dL (0.2-1.3); WBC 5.1 k/uL (3.8-10.6)
[2016-11-10 12:02] LABS: Partial Thromboplastin Time 27.7 sec (22.0-30.0); Prothrombin Time 10.3 sec (9.0-12.0)
[2016-11-10 12:09] LABS: Creatine Kinase 59 U/L (55-170)
--- NOTE | 2016-11-10 12:16 | CT ---
EXAMINATION TYPE: CT brain wo con for TPA DATE OF EXAM: 11/10/2016 COMPARISON: 04/21/2011 INDICATION: altered mental status DLP: 1047.1 mGycm, Automated exposure control for dose reduction was used. CONTRAST: None CT of the brain is performed utilizing 3 mm thick sections through the posterior fossa and 3 mm thick sections through the remaining calvarium. Study is performed within 24 hours of arrival to the hosp ital. No abnormal hyperdensity is present to suggest an acute intracranial hemorrhage. No mass lesion is evident. No acute infarcts are evident. Minimal periventricular white matter hypodensity is present, likely on the basis of chronic white matter ischemic changes. Ventricles and sulci are appropriate for the patient age. There is mucosal thickening within the left maxillary sinus. Some minimal mucosal thickening is withi n ethmoid air cells. Mastoid air cells and remaining paranasal sinuses are clear. IMPRESSIONS: 1. Minimal periventricular white matter changes. 2. No acute intracranial process evident.
[2016-11-10 12:22] LABS: Creatine Kinase MB 0.6 ng/mL (0.0-2.4); Troponin I <0.012 ng/mL (0.000-0.034)
--- NOTE | 2016-11-10 12:22 | XR ---
EXAMINATION TYPE: XR chest 2V DATE OF EXAM: 11/10/2016 COMPARISON: February 23, 2013 HISTORY: Shortness of breath TECHNIQUE: Frontal and lateral views of the chest are obtained. FINDINGS: Scattered senescent parenchymal changes noted. Hyperinflation compatible with COPD. No evidence for infiltrate. No evidence for atelectasis. Heart size is stable. Mediastinal structures are stable and grossly unremarkable. No evidence for hilar prominence. Degenerative changes dorsal spine. IMPRESSION: 1. No evidence for acute pulmonary disease.
--- NOTE | 2016-11-10 13:10 | CT ---
EXAMINATION TYPE: CT angio head neck DATE OF EXAM: 11/10/2016 HISTORY: altered mental status COMPARISON: NONE CT DLP: 314.3 mGycm. Automated Exposure Control for Dose Reduction was Utilized. TECHNIQUE: CTA scan of the neck is performed with IV Contrast, patient injected with 65 mL of Omnipa que 350, axial images are obtained, coronal and sagittal reformatted images are reviewed. Three-D rec onstructed images are created on an independent workstation and reviewed. FINDINGS: Carotid/Vascular Structures: There is narrowing of the origin of the right internal carotid artery. T he left internal carotid artery appears to have milder narrowing but patent. The left external caroti d artery may be obstructed at its origin. Vertebral arteries are patent. At the level of the mandible beam hardening artifact appears to be creating the appearance of mid int ernal carotid artery narrowing greater on the right than the left. This most likely artifactual. Measurement criteria the left internal carotid artery is 47% narrowed at the bifurcation. At the righ t carotid bifurcation narrowing is measured at 48%. [place]: Internal carotid arteries bifurcate into A1 and M1 segments. A2 segments are normal . Middle cerebral artery branches appear normal. Posterior cerebral vasculature is normal. Anterior c ommunicating artery is patent. Posterior communicating arteries are not identified. There may be a ve nous angioma in the right inferior lateral cerebellar region. IMPRESSION: 1. Atheromatous plaquing of the bilateral carotid bifurcations which on visual inspection appears wor se on the left with narrowing. By direct transverse measurement these are each just less than 50%. 2. [place] appears normal.
--- NOTE | 2016-11-10 15:37 | US ---
EXAMINATION TYPE: US carotid duplex BILAT DATE OF EXAM: 11/10/2016 COMPARISON: NONE CLINICAL HISTORY: Stenosis. Memory loss, exam done portable in ER EXAM MEASUREMENTS: RIGHT: Peak Systolic Velocity (PSV) cm/sec ----- Right CCA: 67.7 ----- Right ICA: 117.7 ----- Right ECA: 238.4 ICA/CCA ratio: 1.7 RIGHT: End Diastole cm/sec ----- Right CCA: 19.3 ----- Right ICA: 31.8 ----- Right ECA: 32.7 LEFT: Peak Systolic Velocity (PSV) cm/sec ----- Left CCA: 38.5 ----- Left ICA: 119.1 ----- Left ECA: 116.1 ICA/CCA ratio: 3.1 LEFT: End Diastole cm/sec ----- Left CCA: 11.1 ----- Left ICA: 33.2 ----- Left ECA: 23.4 VERTEBRALS (direction of flow): Right Vertebral: Antegrade Left Vertebral: Antegrade Rhythm: Normal Bilateral intimal thickening, plaque bilateral bulb greater on the left, elevated velocity: right mid ECA, left ICA/CCA ratio of 3.1 IMPRESSION: 1. Bilateral plaque with findings compatible with a 50-69% stenosis involving the proximal left ICA.
[2016-11-10] MEDS ORDERED: MAGNESIUM SULFATE-D5W PMX 1 GM in DEXTROSE/WATER 1 100ML.BAG IVPB ONE (15:38)
[2016-11-10] MEDS ORDERED: NITROGLYCERIN SL TABS 0.4 MG TAB SUBLINGUAL PRN (16:53)
[2016-11-10] MEDS ORDERED: DOCUSATE 100 MG CAP PO PRN (16:53)
--- NOTE | 2016-11-10 23:15 | HP ---
HISTORY AND PHYSICAL SUBJECTIVE: This is a 66-year-old white male with altered mental status and forgetfulness per his ; does not the date or his address where he lives. 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 He did not have any facial drooping or slurred speech. He was drinking 4 to 5 beers last night, as he always does. Alcohol level at admission was only 20. HOME MEDICATIONS: 1. Aspirin 325 daily. 2. Tenormin 50 daily. 3. Colcrys 0.6 daily. 4. Imdur 30 mg daily. 5. Prednisone 10 mg daily. 6. Nitroglycerin sublingually daily. 7. Prilosec 20 mg daily. 8. Crestor 40 mg daily. 9. Colace 100 mg daily. ALLERGIES: NO KNOWN DRUG ALLERGIES. REVIEW OF SYSTEMS: Fourteen-point review of systems negative except for as mentioned in HPI. PAST MEDICAL HISTORY: 1. Coronary artery disease. 2. GERD. 3. Dyslipidemia. 4. Hypertension. 5. Myocardial infarction. 6. AAA getting larger. 7. Herniated disc. 8. Heart catheterization with stents. 9. Joint replacement. 10.Right hip replacement. 11.Last stent placed 2011. 12.He is a former smoker. PHYSICAL EXAMINATION: Vital signs are stable. Afebrile. CARDIOVASCULAR: S1, S2. Lungs show scattered wheeze x4. OPHTHALMOLOGIC: Pupils equal, round, reactive to light and accommodation. No scleral icterus. ENT: No adenopathy. Skin is warm, dry and intact. NEUROLOGIC: Cranial nerves are intact. He is alert and oriented x2. Some confusion on where he lives and his address at home. Knows (). Temperature 97.2, blood pressure 140s to 160s over 70s to 80s. Oxygen 98% on room air. Respiratory rate 16 to 18. INVESTIGATIONS: EKG shows sinus rhythm. White count 5.1, hemoglobin 14.6, sodium 135, potassium 4.6. ASSESSMENT: 1. Acute cerebrovascular accident. 2. Alcoholism. 3. History of hypertension. 4. Coronary artery disease. 5. Chronic obstructive pulmonary disease. 6. Nicotine addiction. PLAN: Continue current treatment. Neurology workup is pending. Please see further orders. MMODL / IJN: [id number] /
[2016-11-11 03:33] LABS: Cholesterol 159 mg/dL (<200); HDL Cholesterol 58 mg/dL (40-60)
[2016-11-11] MEDS: PANTOPRAZOLE 40 MG TABLET PO SCH (06:45)
--- NOTE | 2016-11-11 08:32 | P.CRDCN ---
History of Present Illness Consult date: 11/11/16 Chief complaint: Change in mental status History of present illness: This is a pleasant 66-year-old gentleman who sees Dr. Bowden as an outpatient with a past medical history significant for CAD and prior stenting, hypertension , dyslipidemia, and history of AAA and status post a stent graft, was brought to the emergency room by his because of change in mental status. The patient was in his usual state of health until yesterday when he woke up from sleep does not remember anything. The patient could not remember the name of his coworkers, nor the address where he lives. Apparently he lost his percent memory. No focal neurologic symptoms or finding. The patient did not have any symptoms of chest pain or discomfort or shortness of breath. He has been hemodynamically stable overall. He underwent carotid duplex study which showed intermediate bilateral internal carotid disease. CTA angiographically was also performed and showed intermediate bilateral carotid disease. Computed tomography scan of the brain was performed and showed no acute finding. The EKG showed sinus rhythm was RBBB. The cardiac enzymes were checked and came in to be unremarkable. Past Medical History Past Medical History: Coronary Artery Disease (CAD), GERD/Reflux, Hyperlipidemia , Hypertension, Myocardial Infarction ([place]) Additional Past Medical History / Comment(s): AAA-, herniated disc, MURMUR CHILD,ECZEMA Last Myocardial Infarction Date:: unknown History of Any Multi-Drug Resistant Organisms: None Reported Past Surgical History: Heart Catheterization With Stent, Joint Replacement Additional Past Surgical History / Comment(s): right hip replacement, AAA AND RT ILIAC ANEURYSM REPAIR Past Anesthesia/Blood Transfusion Reactions: No Reported Reaction Date of Last Stent Placement:: 2011 Smoking Status: Current every day smoker - Past Family History Father Family Medical History: Cancer Additional Family Medical History / Comment(s): ESOPHAGEAL CANCER Mother Family Medical History: CVA/TIA Additional Family Medical History / Comment(s): PACEMAKER Medications and Allergies Home Medications Medication Instructions Recorded Confirmed Type Aspirin 325 mg PO DAILY 07/26/16 11/10/16 History Atenolol [Tenormin] 50 mg PO DAILY 07/26/16 11/10/16 History Colchicine [Colcrys] 0.6 mg PO DAILY 07/26/16 11/10/16 History Isosorbide Mononitrate ER [Imdur] 30 mg PO DAILY 07/26/16 11/10/16 History Lisinopril [Prinivil] 10 mg PO DAILY 07/26/16 11/10/16 History Nitroglycerin Sl Tabs [Nitrostat] 0.4 mg SUBLINGUAL Q5M PRN 07/26/16 11/10/16 History Omeprazole [PriLOSEC] 20 mg PO AC-BRKFST 07/26/16 11/10/16 History Rosuvastatin Calcium [Crestor] 40 mg PO DAILY 07/26/16 11/10/16 History Docusate [Colace] 100 mg PO DAILY PRN 11/10/16 11/10/16 History Allergies Allergy/AdvReac Type Severity Reaction Status Date / Time No Known Allergies Allergy Verified 11/10/16 11:32 Physical Exam Vitals: Vital Signs Temp Pulse Pulse Resp BP BP Pulse Ox 11/11/16 00:00 61 17 126/68 96 11/10/16 21:10 64 16 11/10/16 16:10 98.5 F 71 16 142/72 96 11/10/16 15:49 98.0 F 67 16 156/80 98 11/10/16 15:10 62 16 149/80 99 11/10/16 14:10 98.0 F 66 18 150/76 98 11/10/16 13:03 70 16 155/77 97 11/10/16 11:55 60 16 155/88 98 11/10/16 11:40 62 16 147/79 98 11/10/16 11:25 62 16 162/81 97 11/10/16 11:08 97.2 F L 60 17 145/70 98 Intake and Output 11/10/16 11/11/16 11/11/16 22:59 06:59 14:59 Intake Total 300 Output Total 600 200 Balance -300 -200 Intake: IV 100 Magnesium Sulfate-D5w Pmx 100 1 gm In Dextrose/Water 1 100ml.bag @ 100 mls/hr IVPB ONCE ONE Rx#: [id number] Oral 200 Output: Urine 600 200 Other: Voiding Method Urinal # Voids 1 Weight 72.9 kg - Constitutional General appearance: no acute distress - Respiratory Respiratory: bilateral: CTA - Cardiovascular Rhythm: regular Heart sounds: normal: S1, S2 Results 11/10/16 11:25 11/10/16 11:25 Cardiac Enzymes 11/10/16 11/10/16 Range/Units 11:25 11:25 AST 26 (17-59) U/L CK-MB (CK-2) 0.6 (0.0-2.4) ng/mL Troponin I <0.012 (0.000-0.034) ng/mL Coagulation 11/10/16 Range/Units 11:25 PT 10.3 (9.0-12.0) sec APTT 27.7 (22.0-30.0) sec Lipids 11/10/16 Range/Units 11:25 Triglycerides 88 (<150) mg/dL Cholesterol 159 (<200) mg/dL HDL Cholesterol 58 (40-60) mg/dL CBC 11/10/16 Range/Units 11:25 WBC 5.1 (3.8-10.6) k/uL RBC 4.35 (4.30-5.90) m/uL Hgb 14.6 (13.0-17.5) gm/dL Hct 42.9 (39.0-53.0) % Plt Count 225 (150-450) k/uL Comprehensive Metabolic Panel 11/10/16 Range/Units 11:25 Sodium 135 L (137-145) mmol/L Potassium 4.9 (3.5-5.1) mmol/L Chloride 103 (98-107) mmol/L Carbon Dioxide 21 L (22-30) mmol/L BUN 9 (9-20) mg/dL Creatinine 0.90 (0.66-1.25) mg/dL Glucose 83 (74-99) mg/dL Calcium 9.1 (8.4-10.2) mg/dL AST 26 (17-59) U/L ALT 27 (21-72) U/L Alkaline Phosphatase 78 (38-126) U/L Total Protein 7.0 (6.3-8.2) g/dL Albumin 3.9 (3.5-5.0) g/dL Current Medications Generic Name Dose Route Start Last Admin Trade Name Freq PRN Reason Stop Dose Admin Aspirin 325 mg 11/11/16 09:00 Aspirin PO DAILY [facility] Atenolol 50 mg 11/11/16 09:00 Tenormin PO DAILY [facility] Atorvastatin Calcium 80 mg 11/11/16 09:00 Lipitor PO DAILY [facility] Colchicine 0.6 mg 11/11/16 09:00 Colcrys PO DAILY [facility] Docusate Sodium 100 mg 11/10/16 16:53 Colace PO DAILY PRN Constipation Isosorbide Mononitrate 30 mg 11/11/16 09:00 Imdur PO DAILY [facility] Lisinopril 10 mg 11/11/16 09:00 Zestril PO DAILY [facility] Miscellaneous Information 1 each 11/10/16 11:27 11/10/16 12:00 Rx Info: Iv Contrast Was Given MISCELLANE 11/12/16 11:27 1 each DAILY PRN Administration Per Protocol Nitroglycerin 0.4 mg 11/10/16 16:53 Nitrostat SUBLINGUAL Q5M PRN Chest Pain Pantoprazole Sodium 40 mg 11/11/16 07:30 11/11/16 06:45 Protonix PO 40 mg AC-BRKFST [facility] Administration Intake and Output 11/10/16 11/11/16 11/11/16 22:59 06:59 14:59 Intake Total 300 Output Total 600 200 Balance -300 -200 Intake: IV 100 Magnesium Sulfate-D5w Pmx 100 1 gm In Dextrose/Water 1 100ml.bag @ 100 mls/hr IVPB ONCE ONE Rx#: [id number] Oral 200 Output: Urine 600 200 Other: Voiding Method Urinal # Voids 1 Weight 72.9 kg 11/10/16 11:25 11/10/16 11:25 Assessment and Plan Plan: This is a pleasant 66-year-old gentleman with known CAD, PAD, hypertension and dyslipidemia who was admitted to the hospital with change in mental status. From a cardiovascular standpoint of view, the patient is asymptomatic and hemodynamically stable. We will obtain an echocardiogram was Doppler. Awaiting for the vascular surgery input. Awaiting for the neurology input. Follow-up with the patient.
[2016-11-11] MEDS: ASPIRIN 325 MG TAB PO SCH (08:37)
[2016-11-11] MEDS: COLCHICINE 0.6 MG TAB PO SCH (08:38)
[2016-11-11] MEDS: ATORVASTATIN 80 MG TAB PO SCH (08:38)
[2016-11-11] MEDS: ISOSORBIDE MONONITRATE ER 30 MG TAB.ER.24H PO SCH (08:38)
[2016-11-11] MEDS: ATENOLOL 50 MG TAB PO SCH (08:38)
--- NOTE | 2016-11-11 10:00 | P.CNNES ---
History of Present Illness Consult date: 11/10/16 Reason for Consult: Patient admitted with symptoms of acute stroke. History of Present Illness: This patient is a 66-year-old right-handed white male who presented to the emergency room today with symptoms of increasing confusion and memory loss. Patient states he just woke up in the morning and found himself in a fall. He could not concentrate and felt there was some acute changes related to memory loss. He states previously he was doing well and the sudden confusion and forgetfulness was a new finding for him. 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 He was having difficulty with his ability to read words and books. He had no evidence of slurred speech or facial droop during this episode. He denied any numbness or weakness. Apparently when he woke up earlier in the morning these were the major findings. Patient denies any previous history of TIA or stroke. He does have a history of coronary artery disease as well as hyperlipidemia and hypertension. Cardiology has been consulted for further assessment. He underwent an EKG in the emergency room which revealed a right bundle branch block with no ST segment elevation or depression. The patient was evaluated in the emergency room by Dr. Fuentes. He was sent for a computed tomography scan of the brain and cervical spine. CAT scan of the brain revealed minimal periventricular white matter changes with no acute intracranial process. He also underwent a CTA angiogram of the head and neck. This revealed atheromatous plaquing bilaterally with a estimated blockage of less than 50%. [place] was normal. Patient was admitted to the hospital for further evaluation of TIA versus stroke. He underwent a carotid Doppler ultrasound today which reveals bilateral plaque with findings compatible with 50-69% stenosis involving the left ICA. We have reviewed all of his test results today with the patient. His speech does appear to be normal but he still feels he is having memory difficulties. He does have a history of alcohol use and does drink 2-3 beers a day according to the patient. He should be closely monitored for alcohol withdrawal syndrome and delirium tremens. The patient is now admitted and neurology has been consulted for further evaluation and recommendations. Review of Systems Constitutional: Denies chills, Denies fever Eyes: denies blurred vision, denies pain Ears, nose, mouth and throat: Denies headache, Denies sore throat Cardiovascular: Denies chest pain, Denies shortness of breath Respiratory: Denies cough Gastrointestinal: Denies abdominal pain, Denies diarrhea, Denies nausea, Denies vomiting Musculoskeletal: Denies myalgias Integumentary: Denies pruritus, Denies rash Neurological: Reports change in mentation, Reports confusion, Reports memory loss, Reports tingling, Denies numbness, Denies weakness Psychiatric: Denies anxiety, Denies depression Endocrine: Denies fatigue, Denies weight change Past Medical History Past Medical History: Coronary Artery Disease (CAD), GERD/Reflux, Hyperlipidemia , Hypertension, Myocardial Infarction ([place]) Additional Past Medical History / Comment(s): AAA-, herniated disc, MURMUR CHILD,ECZEMA Last Myocardial Infarction Date:: unknown History of Any Multi-Drug Resistant Organisms: None Reported Past Surgical History: Heart Catheterization With Stent, Joint Replacement Additional Past Surgical History / Comment(s): right hip replacement, AAA AND RT ILIAC ANEURYSM REPAIR Past Anesthesia/Blood Transfusion Reactions: No Reported Reaction Date of Last Stent Placement:: 2011 Smoking Status: Current every day smoker - Past Family History Father Family Medical History: Cancer Additional Family Medical History / Comment(s): ESOPHAGEAL CANCER Mother Family Medical History: CVA/TIA Additional Family Medical History / Comment(s): PACEMAKER Medications and Allergies Home Medications Medication Instructions Recorded Confirmed Type Aspirin 325 mg PO DAILY 07/26/16 11/10/16 History Atenolol [Tenormin] 50 mg PO DAILY 07/26/16 11/10/16 History Colchicine [Colcrys] 0.6 mg PO DAILY 07/26/16 11/10/16 History Isosorbide Mononitrate ER [Imdur] 30 mg PO DAILY 07/26/16 11/10/16 History Lisinopril [Prinivil] 10 mg PO DAILY 07/26/16 11/10/16 History Nitroglycerin Sl Tabs [Nitrostat] 0.4 mg SUBLINGUAL Q5M PRN 07/26/16 11/10/16 History Omeprazole [PriLOSEC] 20 mg PO AC-BRKFST 07/26/16 11/10/16 History Rosuvastatin Calcium [Crestor] 40 mg PO DAILY 07/26/16 11/10/16 History Docusate [Colace] 100 mg PO DAILY PRN 11/10/16 11/10/16 History Allergies Allergy/AdvReac Type Severity Reaction Status Date / Time No Known Allergies Allergy Verified 11/10/16 11:32 Physical Examination - Vital Signs Vital Signs: Vital Signs Temp Pulse Pulse Resp BP BP Pulse Ox 11/10/16 16:10 98.5 F 71 16 142/72 96 11/10/16 15:49 98.0 F 67 16 156/80 98 11/10/16 15:10 62 16 149/80 99 11/10/16 14:10 98.0 F 66 18 150/76 98 11/10/16 13:03 70 16 155/77 97 11/10/16 11:55 60 16 155/88 98 11/10/16 11:40 62 16 147/79 98 11/10/16 11:25 62 16 162/81 97 11/10/16 11:08 97.2 F L 60 17 145/70 98 Intake and Output 11/10/16 11/10/16 11/10/16 06:59 14:59 22:59 Intake Total 300 Output Total 600 Balance -300 Intake: IV 100 Magnesium Sulfate-D5w Pmx 100 1 gm In Dextrose/Water 1 100ml.bag @ 100 mls/hr IVPB ONCE ONE Rx#: [id number] Oral 200 Output: Urine 600 Other: Voiding Method Urinal Weight 77.111 kg Patient Weight 11/11/16 06:59 Weight 77.111 kg - Constitutional General appearance: average body habitus, cooperative - EENT EENT: PERRL, mucous membranes moist - Respiratory Respiratory: lungs clear, normal breath sounds - Cardiovascular Cardiovascular: regular rate, normal S1, normal S2 Extremities: no peripheral edema bilaterally - Gastrointestinal Gastrointestinal: normoactive bowel sounds - Integumentary Integumentary: normal - Neurologic Cranial nerve examination: PERRL, EOMI, VFF, V1/V2/V3 grossly intact, face symmetric, intact gag reflex, intact corneal reflex, normal palatal elevation Speech examination: intact Sensorimotor examination: intact Detailed motor examination: grossly full strength in all extremities Motor examination - right side: 4/5: biceps, triceps, wrist flexion, wrist extension, electroplating sales representative, hip flexors, knee extensors, dorsiflexion, toe extension (EHL) , plantarflexion Motor examination - left side: 4/5: biceps, triceps, wrist flexion, wrist extension, electroplating sales representative, hip flexors, knee extensors, dorsiflexion, toe extension (EHL) , plantarflexion Detailed sensory examination: intact Reflex and gait examination: intact Reflexes: 1+: ankle, bicep, knee, tricep - Musculoskeletal Musculoskeletal: no pain - Psychiatric Psychiatric: mood/affect appropriate, cooperative Results - Laboratory Findings CBC and BMP: 11/10/16 11:25 11/10/16 11:25 Abnormal Lab Findings: Abnormal Labs 11/10/16 11/10/16 11/10/16 11:25 11:25 13:06 Lymphocytes # 0.8 L Sodium 135 L Carbon Dioxide 21 L Magnesium 1.4 L Assessment and Plan (1) Acute encephalopathy Status: Acute Code(s): G93.40 - ENCEPHALOPATHY, UNSPECIFIED (2) TIA (transient ischemic attack) Status: Acute Code(s): G45.9 - TRANSIENT CEREBRAL ISCHEMIC ATTACK, UNSPECIFIED (3) Alcoholism Status: Acute Code(s): F10.20 - ALCOHOL DEPENDENCE, UNCOMPLICATED (4) Hypertension Status: Acute Code(s): I10 - ESSENTIAL (PRIMARY) HYPERTENSION (5) Ischemic cardiomyopathy Status: Acute Code(s): I25.5 - ISCHEMIC CARDIOMYOPATHY Plan: This patient is a 66-year-old male who was admitted to Hospital with symptoms of acute memory loss and sudden onset of acute confusion. Patient has a history of alcohol abuse over the years but had not been heavily drinking. Apparently he was having difficulty remembering names and familiar faces. His is concerned and did bring him to the emergency room for further evaluation. He was very forgetful when he woke up in the morning. Patient was seen in the emergency room by Dr. Fuentes. He underwent a computed tomography scan of the brain which was negative for any acute changes. He was admitted to hospital for further evaluation of possible TIA versus stroke. He does have a history of alcohol is him which is to be closely monitored for early signs of alcohol withdrawal and delirium tremens. His neurological examination at this time is nonfocal. We have recommended an MRI of the brain for further evaluation. He should be closely monitored for alcohol withdrawal syndrome. We will continue close neurological follow-up of this patient during this admission. His overall prognosis at this time remains guarded. Time with Patient: Greater than 30
[2016-11-11] MEDS: LISINOPRIL 10 MG TAB PO SCH (11:59)
--- NOTE | 2016-11-11 12:13 | CONS ---
CONSULTATION This is a 66-year-old gentleman who has been admitted to Dr. Donny Cottrell's service. I was consulted for cardiac evaluation. This gentleman who was at home and yesterday he woke up from sleep and he could not remember that time period. The patient could not remember the name and address where he lives. There is no evidence of loss of vision or any motor deficit. Patient has a history of coronary artery disease, post stenting under the care of Dr. Bowden and also has history of hypertension, history of dyslipidemia, history of abdominal aortic aneurysm, status post aortic stent graft. PHYSICAL EXAMINATION: Patient was seen in his room. Patient still has some memory loss and he does not remember what happened at the time of symptoms. No history of trauma. No history of fall. His neck is supple. No bruit appreciated. Chest is clear. First and second sounds are normal. His vascular exam of brachial, radial and femoral pulses are present. Patient demonstrates normal motor function of the lower extremity. Patient had a carotid ultrasound, which showed 50% to 69% stenosis. CT of the carotids shows less than 60% stenosis bilateral and CT of the head shows no intracranial bleed. Patient is seen by Neurology and scheduled to have MRA. RECOMMENDATION: Will continue with the antiplatelet therapy and will wait for the MRI report and will follow with you. MMODL / IJN: [id number] /
--- NOTE | 2016-11-11 13:57 | MR ---
EXAMINATION TYPE: MR brain wo con DATE OF EXAM: 11/11/2016 1:38 PM COMPARISON: NONE HISTORY: Patient wilth increased confusion and memory loss FINDINGS: The ventricles, basal cisterns and sulci overlying the cerebral convexities are mildly enlarged. There is evidence of mild periventricular white matter ischemic demyelination. Remote deep white matter insults are also noted. Diffusion-weighted imaging demonstrates an area of acute ischemia involving the inferior medial aspec t of the left temporal lobe involving the left RECORDS TECH territory. No evidence for hemorrhagic transformat ion. There is no evidence for midline shift or mass effect. Acute intracranial hemorrhage or extra-axial collection is not evident. Vascular flow voids are pr eserved. Small amount of fluid within the right-sided mastoid air cells. Mild mucosal thickening ethmoid air c ells. IMPRESSION: 1. Acute CVA inferior medial aspect of the left temporal lobe corresponding with left RECORDS TECH territory. No evidence for hemorrhagic transformation. 2. Age-related atrophic and chronic small vessel ischemic change.
--- NOTE | 2016-11-11 16:42 | P.PN ---
Subjective This patient is 66-year-old right-handed white male who was seen in neurology consultation yesterday for evaluation of altered mental status and acute onset of confusion. The patient presented to the emergency room yesterday due to increased confusion and disorientation. The patient's was at bedside today states that he was doing fine up until early in the morning yesterday. He awoke and just was not himself. He was not oriented to know how to change 10 on his television. He was also quite confused and knowing how to use his remote control. These were sudden changes in the is also concerned with these symptoms. He was brought into the emergency room where he was further evaluated. He was sent for a computed tomography scan of the brain which was reported negative for any acute changes. He subsequently underwent MRI of the brain today which was reviewed and does reveal evidence of an acute stroke involving the inferior medial aspect of the left temporal lobe. This corresponds to the left STATION MECHANIC APPRENTICE arterial territory. No other new or acute areas of stroke were noted. There was no evidence of any hemorrhagic transformation. Age-related atrophy and chronic small vessel ischemic changes were noted. We did review the results of the MRI today with the patient's was at bedside. He shouldn't was off the floor at this time having a procedure done. We will return later this afternoon and discuss the results of his MRI with the patient in detail. Patient was seen by cardiology and we are waiting there further input. His overall prognosis at this time remains guarded. Objective - Vital Signs Vital signs: Vital Signs Temp 96.3 F L 11/11/16 15:28 Pulse 54 L 11/11/16 15:28 Resp 16 11/11/16 15:28 BP 130/71 11/11/16 15:28 Pulse Ox 96 11/11/16 15:28 Intake & Output 11/10/16 11/11/16 11/11/16 18:59 06:59 18:59 Intake Total 300 355 Output Total 600 200 125 Balance -300 -200 230 Weight 77.111 kg 72.9 kg Intake: IV 100 Magnesium Sulfate-D5w Pmx 100 1 gm In Dextrose/Water 1 100ml.bag @ 100 mls/hr IVPB ONCE ONE Rx#: [id number] Oral 200 355 Output: Urine 600 200 125 Other: Voiding Method Urinal Urinal Toilet Urinal # Voids 1 1 # Bowel Movements 1 - Exam Physical examination: PHYSICAL EXAMINATION: Patient is resting comfortably in bed. VITAL SIGNS: Blood pressure is [1:30/71]. Heart rate is [54]. Respiration is [16 ]. Temperature is [97.8]. HEENT: Head is atraumatic, neck is supple, there were no carotid bruits. CHEST: Lungs are clear to auscultation and percussion. CARDIAC: S1, S2 normal rate and rhythm. There is no murmur. ABDOMEN: Soft and nontender. Bowel sounds are present. EXTREMITIES: There is no pedal edema. Peripheral pulses are present. Neurological examination: Patient has a nonfocal neurological examination today. - Labs CBC & Chem 7: 11/10/16 11:25 11/10/16 11:25 Assessment and Plan (1) Acute encephalopathy Status: Acute Code(s): G93.40 - ENCEPHALOPATHY, UNSPECIFIED (2) TIA (transient ischemic attack) Status: Acute Code(s): G45.9 - TRANSIENT CEREBRAL ISCHEMIC ATTACK, UNSPECIFIED (3) Alcoholism Status: Acute Code(s): F10.20 - ALCOHOL DEPENDENCE, UNCOMPLICATED (4) Hypertension Status: Acute Code(s): I10 - ESSENTIAL (PRIMARY) HYPERTENSION (5) Ischemic cardiomyopathy Status: Acute Code(s): I25.5 - ISCHEMIC CARDIOMYOPATHY Plan: This patient is a 66-year-old male who was admitted to hospital yesterday with symptoms of confusion and altered mental status. Patient had been fine up until yesterday morning. According to his who provided the medical history he was clearly having difficulty concentrating and staying on task with his duties at home. The patient just did not feel well and decided to come into the emergency room for further evaluation yesterday evening. The patient apparently was feeling very forgetful at home and felt that he was losing some of his memory. He was subsequent admitted to the hospital yesterday and was seen initially on neurology consultation. We requested an MRI of the brain for further evaluation. This MRI was completed today and does reveal evidence of an acute left temporal lobe infarct involving the left STATION MECHANIC APPRENTICE distribution. There was no evidence of any hemorrhagic transformation. We reviewed the results of the MRI today with the patient's in detail. His carotid Doppler study came back negative for any significant carotid artery stenosis. The patient will be maintained on 1 aspirin daily for secondary stroke prevention. He was seen by cardiology today and we will await their further recommendation as well. His overall prognosis at this time remains guarded.
[2016-11-11] MEDS ORDERED: Magnesium Replacement Protocol 1 EACH MISC MISCELLANE PRN (18:28)
[2016-11-11] MEDS: MAGNESIUM SULFATE-D5W PMX 1 GM in DEXTROSE/WATER 1 100ML.BAG IVPB SCH ×2 (19:00→20:54)
[2016-11-12] MEDS: PANTOPRAZOLE 40 MG TABLET PO SCH (07:08)
[2016-11-12] MEDS: ATENOLOL 50 MG TAB PO SCH (08:35)
[2016-11-12] MEDS: ATORVASTATIN 80 MG TAB PO SCH (08:35)
[2016-11-12] MEDS: LISINOPRIL 10 MG TAB PO SCH (08:35)
[2016-11-12] MEDS: ISOSORBIDE MONONITRATE ER 30 MG TAB.ER.24H PO SCH (08:35)
[2016-11-12] MEDS: COLCHICINE 0.6 MG TAB PO SCH (08:35)
[2016-11-12] MEDS: ASPIRIN 325 MG TAB PO SCH (08:35)
--- NOTE | 2016-11-12 09:40 | P.PN ---
Subjective Principal diagnosis: Change in mental status This is a pleasant 66-year-old gentleman who sees Dr. Bowden as an outpatient with a past medical history significant for CAD and prior stenting, hypertension , dyslipidemia, and history of AAA and status post a stent graft, was brought to the emergency room by his because of change in mental status. The patient was in his usual state of health until yesterday when he woke up from sleep does not remember anything. The patient could not remember the name of his coworkers, nor the address where he lives. Apparently he lost his percent memory. No focal neurologic symptoms or finding. The patient did not have any symptoms of chest pain or discomfort or shortness of breath. He has been hemodynamically stable overall. He underwent carotid duplex study which showed intermediate bilateral internal carotid disease. CTA angiographically was also performed and showed intermediate bilateral carotid disease. Computed tomography scan of the brain was performed and showed no acute finding. He underwent yesterday an MRI of the brain and that showed stroke in the distribution of the left posterior cerebral artery. The EKG showed sinus rhythm was RBBB. The cardiac enzymes were checked and came in to be unremarkable. From the cardiac arrest her standpoint of view, the patient denies having any chest pain or discomfort or difficulty breathing. Objective - Vital Signs Vital signs: Vital Signs Temp 97.2 F L 11/12/16 04:00 Pulse 51 L 11/12/16 04:00 Resp 16 11/12/16 04:00 BP 143/68 11/12/16 04:00 Pulse Ox 98 11/12/16 04:00 Intake & Output 11/11/16 11/12/16 11/12/16 18:59 06:59 18:59 Intake Total 595 237 Output Total 125 400 Balance 470 -400 237 Intake: Oral 595 237 Output: Urine 125 400 Other: Voiding Method Toilet Toilet Urinal Urinal # Voids 1 1 # Bowel Movements 1 - Constitutional General appearance: Present: no acute distress - Respiratory Respiratory: bilateral: CTA - Cardiovascular Rhythm: regular Heart sounds: normal: S1, S2 - Labs CBC & Chem 7: 11/10/16 11:25 11/10/16 11:25 Assessment and Plan Plan: This is a pleasant 66-year-old gentleman with known CAD, PAD, hypertension and dyslipidemia who was admitted to the hospital with change in mental status. The MRI of the brain showed acute stroke in the distribution of the left posterior cerebral artery. From a cardiovascular standpoint of view, the patient is asymptomatic and hemodynamically stable. We will follow-up with the patient on when necessary case
[2016-11-12 09:59] VITALS: RESP 18
[2016-11-12 11:27] LABS: Glucose,Whole Blood 122 mg/dL (75-99)
[2016-11-12 16:45] VITALS: BP 124/66; TEMP 98.8
[2016-11-12 17:44] VITALS: PULSE 54
--- NOTE | 2016-11-13 21:46 | ECHOF ---
Referral Reason:cva MEASUREMENTS -------- HEIGHT: 167.6 cm WEIGHT: 72.6 kg BP: 126/68 RVIDd: 3.3 cm (< 3.3) IVSd: 1.3 cm (0.6 - 1.1) LVIDd: 4.2 cm (3.9 - 5.3) LVPWd: 1.3 cm (0.6 - 1.1) IVSs: 1.5 cm LVIDs: 3.3 cm LVPWs: 1.3 cm LA Diam: 3.8 cm (2.7 - 3.8) LAESV Index (A-L): 45.60 ml/m Ao Diam: 3.5 cm (2.0 - 3.7) AV Cusp: 2.0 cm (1.5 - 2.6) MV EXCURSION: 14.577 mm (> 18.000) MV EF SLOPE: 44 mm/s (70 - 150) EPSS: 0.7 cm MV E Rubén: 0.55 m/s MV DecT: 313 ms MV A Rubén: 0.64 m/s MV E/A Ratio: 0.85 RAP: 5.00 mmHg RVSP: 34.08 mmHg FINDINGS -------- Sinus rhythm. This was a technically adequate study. The left ventricular size is normal. There is mild concentric left ventricular hypertrophy. Overall left ventricular systolic function is normal with, an EF between 55 - 60 %. Basal inferior LV wall motion is hypokinetic. Basal inferoseptal LV wall motion is hypokinetic. The right ventricle is mildly enlarged. LA is severely dilated >40 ml/m2 The right atrium is normal in size. 1.5mg of Definity was utilized for enhancement of images There is mild aortic valve sclerosis. The mitral valve is normal. Mild tricuspid regurgitation present. There is borderline pulmonary hypertension. The right ventricular systolic pressure, as measured by Doppler, is 34.08mmHg. The pulmonic valve was not well visualized. The aortic root size is normal. IVC Not well visulized. There is no pericardial effusion. CONCLUSIONS -------- 1. Sinus rhythm. 2. The right atrium is normal in size. 3. 1.5mg of Definity was utilized for enhancement of images 4. There is mild aortic valve sclerosis. 5. The mitral valve is normal. 6. Mild tricuspid regurgitation present. 7. There is borderline pulmonary hypertension. 8. The right ventricular systolic pressure, as measured by Doppler, is 34.08mmHg. 9. The pulmonic valve was not well visualized. 10. The aortic root size is normal. 11. IVC Not well visulized. 12. This was a technically adequate study. 13. There is no pericardial effusion. 14. The left ventricular size is normal. 15. There is mild concentric left ventricular hypertrophy. 16. Overall left ventricular systolic function is normal with, an EF between 55 - 60 %. 17. Basal inferior LV wall motion is hypokinetic. 18. Basal inferoseptal LV wall motion is hypokinetic. 19. The right ventricle is mildly enlarged. 20. LA is severely dilated >40 ml/m2 NIGHT FILLER: Dania Suresh RDCS
== END 2016-11-12 18:58 | disposition home or self-care (01) | DRG 64 ==
LOC: EC 11:05 → 6SEL 14:35
PROVIDERS: ADMIT Family Medicine; ATTEND Family Medicine
DX: I63.9 Cerebral infarction, unspecified (principal); G93.40 Encephalopathy, unspecified; E78.5 Hyperlipidemia, unspecified; F10.20 Alcohol dependence, uncomplicated; F17.200 Nicotine dependence, unspecified, uncomplicated; I10 Essential (primary) hypertension; I25.10 Atherosclerotic heart disease of native coronary artery without angina pectoris; I25.2 Old myocardial infarction; I25.5 Ischemic cardiomyopathy; I45.10 Unspecified right bundle-branch block; J44.9 Chronic obstructive pulmonary disease, unspecified; K21.9 Gastro-esophageal reflux disease without esophagitis; Z79.82 Long term (current) use of aspirin; Z79.899 Other long term (current) drug therapy; Z95.5 Presence of coronary angioplasty implant and graft; Z96.641 Presence of right artificial hip joint
CPT/HCPCS: 36415; 70450; 70496; 70498; 70551; 71020; 80053; 80061; 80320; 82550; 82553; 83735; 84484; 85025; 85610; 85730; 93005; 93306; 93880; 95816; 99285

== ENCOUNTER → 2017-03-29 | Outpatient (CLI) | payer MEDICARE, BC ==
--- NOTE | 2017-03-29 13:24 | CT ---
EXAMINATION TYPE: CT angio abd aorta wo/w con DATE OF EXAM: 03/29/2017 COMPARISON: NONE HISTORY: Follow-up abdominal aortic aneurysm, history of stent. CT DLP: 1438.3 mGycm CONTRAST: CTA abdominal aorta with 3-D reconstruction is performed and without and with IV Contrast, patient in jected with 100 mL of Omnipaque 350. CONTRAST CT ABDOMEN AND PELVIS ABDOMINAL AORTA: Double-lumen aortic stent graft is again noted and unchanged in position relative to the prior study. Infrarenal [place] abdominal aortic aneurysm sac measures 5.0 x 4.8 x 9 cm versus 5. 2 x 5.2 x 9.0 cm previously. No significant interval enlargement appreciated. Stable aneurysmal promi nence of the iliac vessels measuring 2.60 cm on the right and 1.6 cm on the left. No evidence for end oleak. Probable chronic small dissection distal abdominal aorta. No significant change appreciated. LIVER/GB- No significant abnormality is seen. PANCREAS- No significant abnormality is seen. SPLEEN- No significant abnormality is seen. ADRENALS- No significant abnormality is seen. KIDNEYS/BLADDER- No significant abnormality is seen. BOWEL- No Significant abnormality GENITAL ORGANS: No gross abnormality seen. LYMPH NODES- No greater than 1cm abdominal or pelvic lymph nodes areappreciated. OSSEOUS STRUCTURES- No significant abnormality is seen. OTHER- No significant abnormality is seen. IMPRESSION- 1. Stable appearance of aortic stent graft without evidence for endoleak and stable appearance of joshua vishal abdominal aortic aneurysm.
== END | disposition home or self-care (01) ==
LOC: RADCTMAIN 12:02
PROVIDERS: ATTEND Internal Medicine Interventional Cardiology
DX: I71.1 Thoracic aortic aneurysm, ruptured (principal)
CPT/HCPCS: 75635; Q9967

== ENCOUNTER → 2017-08-24 | Outpatient (CLI) | payer MEDICARE, BC ==
[2017-08-24 18:12] LABS: HCT 40.9 % (39.0-53.0); MCH 30.7 pg (25.0-35.0); MCHC 31.9 g/dL (31.0-37.0); MCV 96.4 fL (80.0-100.0); Mean Platelet Volume 7.8; Platelet Count 265 k/uL (150-450); RBC 4.24 m/uL (4.30-5.90); RDW 14.2 % (11.5-15.5); WBC 9.6 k/uL (3.8-10.6)
[2017-08-24 18:18] LABS: Albumin 4.4 g/dL (3.5-5.0); Calcium 9.2 mg/dL (8.4-10.2); Potassium 4.5 mmol/L (3.5-5.1); Total Bilirubin 0.4 mg/dL (0.2-1.3); Total Protein 7.6 g/dL (6.3-8.2)
== END | disposition home or self-care (01) ==
LOC: LABWHC1 17:40
PROVIDERS: ATTEND Internal Medicine Interventional Cardiology
DX: I48.91 Unspecified atrial fibrillation (principal)
CPT/HCPCS: 36415; 80053; 84443; 85027

== ENCOUNTER → 2018-05-05 | Outpatient (CLI) | payer MEDICARE, BC ==
--- NOTE | 2018-05-05 10:00 | CT ---
EXAMINATION TYPE: CT angio abdomen DATE OF EXAM: 05/05/2018 COMPARISON: 03/29/2017 HISTORY: 67-year-old male Follow up to AAA repair CT DLP: 2315 mGycm, Automated Exposure Control for Dose Reduction was Utilized. Technique: CT scan of the abdomen and pelvis is performed with oral and without and with IV Contrast, patient injected with 100 mL of Isovue 370. Additional delayed images through the stent graft with c oronal and sagittal MIP reconstructions. 3-D reconstructions generated on a dedicated independent wor kstation. FINDINGS: Heart upper limits of normal in size without pericardial effusion. Lung bases clear without pleural e ffusion. No focal liver lesion or biliary ductal dilatation. Portal venous system is patent on the delayed kid ibeth images. Gallbladder, adrenal glands, kidneys, spleen, and pancreas appear within normal limits. No dilated small bowel, free fluid, or free air. Multiple peripheral stool burden. No pericolonic inf lammatory change. Extensive metal hardware artifact related to the patient's right hip replacement limits visualization of pelvic structures. Prostate gland measures approximately 3.9 cm wide. No abnormal fluid collectio n identified within the pelvis or evidence of pelvic lymphadenopathy. Patulous right inguinal canal r edemonstrated. Postsurgical changes of iliac abdominal aortobiiliac endovascular stent graft extending from the leve l of the celiac axis down into the right external iliac artery and left common iliac artery. Stable calcifications within the [place] sac with the infrarenal abdominal aortic [place] sac measuring 4.9 x 4.4 cm versus 5.0 x 4.8 cm, previously, not significantly changed. No abnormal extension of co ntrast into the [place] sac to suggest endoleak. 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 Moderate irregular atherosclerotic narrowing redemonstrated within the left common femoral artery. Bones: Bilateral L5 pars defects with trace grade 1 anterolisthesis at L5-S1. Additional mild facet a rthropathy lower lumbar spine. IMPRESSION: 1. Status post abdominal aorto biiliac endovascular stent graft. Right-sided landing zone within the external iliac artery and left-sided landing zone in the left common iliac artery. 2. The stented [place] sac is overall stable to slightly smaller at 4.9 x 4.4 cm (versus 5.0 x 4.8 cm, previously). 3. Stable focal 2.1 cm aneurysm of the stented distal right common iliac artery. 4. Stable borderline 1.6 cm aneurysm distal left common iliac artery beyond the stent. 5. Bilateral L5 pars defects redemonstrated with trace grade 1 anterolisthesis of L5-S1.
== END | disposition home or self-care (01) ==
LOC: RADCTMAIN 07:59
PROVIDERS: ATTEND Internal Medicine Interventional Cardiology
DX: I72.3 Aneurysm of iliac artery (principal); Z98.890 Other specified postprocedural states
CPT/HCPCS: 82565; 84520; 74175; 36415; Q9967

== ENCOUNTER → 2019-11-28 | Outpatient (CLI) | payer MEDICARE, BC ==
[2019-11-28 10:55] LABS: Calcium 8.8 mg/dL (8.4-10.2); Potassium 4.9 mmol/L (3.5-5.1); Total Bilirubin 0.5 mg/dL (0.2-1.3); Total Protein 7.4 g/dL (6.3-8.2)
--- NOTE | 2019-11-28 14:11 | CT ---
EXAMINATION TYPE: CT angio abd aorta w/Runoff DATE OF EXAM: 11/28/2019 COMPARISON: 06/01/2018 INDICATION: Abdominal aortic aneurysm with stent DLP: 2356.5 mGycm, Automated exposure control for dose reduction was used. CONTRAST: 125 mL of Isovue 370. Study performed without Oral Contrast TECHNIQUE: Axial images were obtained from above the diaphragm to the pubic rami in the axial plane a t 5 mm thick sections. Reconstructed images are reviewed on the computer in the coronal plane. FINDINGS: Limited CT sections are obtained the lung bases. The lung bases are clear. CT ABDOMEN: Liver: Normal Spleen: Normal Pancreas: Normal Adrenal glands: The adrenal glands are normal. Gallbladder: Normal Kidneys: No masses are evident. No hydronephrosis is present. No cysts are present. Renal vascular calcification noted. Aorta: Vascular calcification is within the aorta. Aortic stent is present. Calcification is within the residual aortic aneurysm. No extravasation of contrast is identified. No endovascular leak is augustine dent. Inferior vena cava: Normal. CT PELVIS: Loops of bowel within the abdomen and pelvis are normal. This study is without oral contrast limi ting bowel evaluation. Appendix: Not identified. No inflammatory changes are evident. Urinary bladder: Normal. Genitourinary structures: Prostate is prominent contains calcification. Osseous structures: No suspicious lytic or sclerotic lesions. There is a right hip prosthesis. Aortic runoff: Aortic stent is patent. Common iliac artery stents and external iliac vessels are howard nt. Right lower extremity runoff: There appears to be obstruction at the right common femoral artery. Thi s is reconstituted from collateral vessels. Superficial femoral is obstructed at the origin. The supe rficial femoral artery is reconstituted from collateral vessels at the obturator canal. The popliteal artery is patent. Common trunk and anterior and posterior tibial arteries and peroneal artery are pa tent to the calf. Anterior and posterior tibial arteries are patent below the ankle. Left lower lower extremity runoff: Common iliac stent and external iliac vessel is patent. The common femoral artery is patent. Profunda femoris appears normal. Superficial femoral artery is obstructed at its origin. This is patent to the popliteal artery. Popliteal artery trifurcates normally into ant erior posterior tibial arteries and peroneal artery. Peroneal artery is patent to the distal calf. An terior and posterior tibial arteries are patent at the level of the ankle. IMPRESSIONS: 1. No endovascular leak identified. 2. Obstruction of the superficial femoral arteries appears to be at the origin. However, multiple col lateral vessels from profunda femoris reconstitute the superficial femoral arteries at the obturator canals.
== END | disposition home or self-care (01) ==
LOC: RADCTMAIN 10:08
PROVIDERS: ATTEND Internal Medicine Interventional Cardiology
DX: I71.4 Abdominal aortic aneurysm, without rupture (principal); E78.2 Mixed hyperlipidemia; I10 Essential (primary) hypertension
CPT/HCPCS: 80061; 80053; 75635; 36415; Q9967

== ENCOUNTER → 2021-11-17 | Outpatient (CLI) | payer MEDICARE, BC ==
--- NOTE | 2021-11-17 14:09 | CT ---
EXAMINATION TYPE: CT angio abdomen DATE OF EXAM: 11/17/2021 COMPARISON: Prior CTA November 28, 2019 HISTORY: AAA w/o rupture. hx of stent CT DLP: 1291.40 mGycm, Automated Exposure Control for Dose Reduction was Utilized. CONTRAST: CT scan of the abdomen is performed without oral and without and with IV Contrast, patient injected w ith 100 mL of Isovue 370. Stent graft protocol with 3-D reconstructed images created on an [employer] workstation and reviewed. FINDINGS: VASCULAR: Metallic aortobiiliac stent graft runs from the diaphragm to the proximal right external il iac artery and to near level of the iliac bifurcation on the left. Patent celiac artery, SMA, and owen ateral single renal arteries noted on postcontrast images. There is occluded KATHY. Patency of the sten t graft is present with some extraluminal hyperdense material identified near the bifurcation but pre sent on noncontrast images favoring calcified plaque. No new area of enhancement outside the stent gr aft to suggest endoleak on immediate or delayed postcontrast images. Irregular contour to the [place] abdominal aorta with aneurysm up to 3.4 cm AP diameter diminished in size from older studies. Stable 2.0 cm [place] AAA of the distal right common iliac artery axial image 61 series 2. LUNG BASES: Cardiomegaly is redemonstrated. LIVER/GB: No significant abnormality is appreciated. PANCREAS: No significant abnormality is seen. SPLEEN: No significant abnormality is seen. ADRENALS: No significant abnormality is seen. KIDNEYS: No significant abnormality is seen. BOWEL: Few scattered colonic diverticula. LYMPH NODES: No greater than 1cm abdominal lymph nodes are appreciated. OSSEOUS STRUCTURES: Metallic hardware from right hip arthroplasty noted on localizer. Bilateral pars defect L5 level without spondylolisthesis redemonstrated. OTHER: Stable small fat-containing umbilical hernia. IMPRESSION: Persistent patent aortobiiliac stent graft. No CT evidence for endoleak. Continued improv ed size of [place] AAA.
== END | disposition home or self-care (01) ==
LOC: RADCTMAIN 12:15
PROVIDERS: ATTEND Internal Medicine Interventional Cardiology
DX: I71.4 Abdominal aortic aneurysm, without rupture (principal); Z95.828 Presence of other vascular implants and grafts
CPT/HCPCS: 82565; 84520; 74175; 36415; Q9967

== ENCOUNTER 2022-07-09 05:49 | Day surgery (SDC) | payer MEDICARE, BC ==
[2022-07-06 13:05] VITALS: BMI 30.7
[~2022-07-09 05:49] MED LIST changes: -ALPRAZolam 0.25 MG TAB PO PRN; +LACTATED RINGERS 1,000 ML IV SCH; -SODIUM CHLORIDE 0.9% 1,000 ML in EMPTY BAG 1 BAG IV ONE
[2022-07-09] MEDS ORDERED: LACTATED RINGERS 1,000 ML IV ONE (06:12)
[2022-07-09 07:04] LABS: Calcium 8.8 mg/dL (8.4-10.2); Potassium 4.3 mmol/L (3.5-5.1)
[2022-07-09] MEDS ORDERED: BENZOCAINE SPRAY 1 CAN TOPICAL ONE (07:16)
[2022-07-09] MEDS ORDERED: LIDOCAINE 2% INJ 20 MG/ML (2 ML VIAL) ONE (07:21)
[2022-07-09] MEDS ORDERED: PROPOFOL 10 MG/ML 20 ML VIAL IV ONE (07:21)
[2022-07-09 07:43] VITALS: TEMP 97
[2022-07-09] MEDS ORDERED: SODIUM CHLORIDE 0.9% 1,000 ML IV SCH (07:45)
--- NOTE | 2022-07-09 07:46 | P.PCN ---
Date of Procedure: 07/09/22 Description of Procedure: Indication: Atrial fibrillation Procedure Description: After explaining the procedure to the patient, it's risk and complications, blood pressure, heart rate and O2 saturation were monitored. The throat was sprayed with Cetacaine. Patient received sedation per anesthesia department. The probe was introduced into the esophagus without difficulty. Images were obtained. Following that, the probe was removed. There was no immediate complication. Findings: Biatrial enlargement was noted. Left atrial appendage is normal Left ventricular size is normal. Ejection fraction is 50-55%. The aortic valve revealed mild thickening of the leaflets. Mitral valve appears to be normal, tricuspid valve is normal. The right ventricle is enlarged. No pericardial effusion was noted. Spontaneous contrast was noted. Contrast bubble study revealed no shunting across the intra-atrial septum. Doppler: Pulse wave and color Doppler were obtained, revealed mild mitral was moderate tricuspid regurgitation, the estimated right ventricular systolic pressure was 40 mmHg. There was no shunting by color Doppler study. Conclusion: 1. Biatrial enlargement 2. Left ventricular systolic ejection fraction borderline normal 3. Left atrial appendage is normal 4. Mild mitral with moderate tricuspid regurgitation and mild pulmonary hypertension 5. No shunting across the interatrial septum. Cardioversion: After obtaining transesophageal echocardiogram and sedated state a synchronized biphasic cardioversion was performed using 150 J with judaism of sinus mechanism, there was no immediate complications.
[2022-07-09 08:24] VITALS: PULSE 67; RESP 18
[2022-07-09 08:53] VITALS: BP 154/65
[2022-07-09] MEDS ORDERED: atenoloL 50 MG TAB PO SCH (09:00)
[2022-07-09] MEDS ORDERED: amLODIPine 5 MG TAB PO SCH (09:00)
[2022-07-09] MEDS ORDERED: NON FORMULARY DRUG (Rosuvastatin Calcium [Crestor] 40 MG Tablet) PO SCH (09:00)
[2022-07-09] MEDS ORDERED: APIXABAN 5 MG TAB PO SCH (09:00)
[2022-07-09] MEDS ORDERED: NON FORMULARY DRUG (Aspirin [Adult Low Dose Aspirin Ec] 81 MG Tablet) PO SCH (09:00)
[2022-07-09] MEDS ORDERED: allopurinoL 100 MG TAB PO SCH (09:00)
[2022-07-09] MEDS ORDERED: CHOLECALCIFEROL 25 MCG (1000 IU) TABLET PO SCH (09:00)
[2022-07-09] MEDS ORDERED: TAMSULOSIN 0.4 MG CAP.ER.24H PO SCH (09:00)
[2022-07-09] MEDS ORDERED: ISOSORBIDE MONONITRATE ER 30 MG TAB.ER.24H PO SCH (09:00)
[2022-07-09] MEDS ORDERED: lisinopriL 10 MG TAB PO SCH (09:00)
[2022-07-10] MEDS ORDERED: NON FORMULARY DRUG (Omeprazole 20 MG Capsule.Dr) PO SCH (07:30)
== END 2022-07-09 08:48 | disposition home or self-care (01) ==
LOC: OR 05:49
PROVIDERS: ATTEND Internal Medicine Interventional Cardiology
DX: I08.1 Rheumatic disorders of both mitral and tricuspid valves (principal); I27.20 Pulmonary hypertension, unspecified; I48.0 Paroxysmal atrial fibrillation; I25.5 Ischemic cardiomyopathy; E78.2 Mixed hyperlipidemia; I71.40 Abdominal aortic aneurysm, without rupture, unspecified; I25.2 Old myocardial infarction; I10 Essential (primary) hypertension; I25.10 Atherosclerotic heart disease of native coronary artery without angina pectoris; Z95.5 Presence of coronary angioplasty implant and graft; I73.9 Peripheral vascular disease, unspecified; F17.210 Nicotine dependence, cigarettes, uncomplicated; K21.9 Gastro-esophageal reflux disease without esophagitis; Z86.73 Personal history of transient ischemic attack (TIA), and cerebral infarction without residual deficits; Z79.01 Long term (current) use of anticoagulants; Z79.899 Other long term (current) drug therapy; Z98.890 Other specified postprocedural states; Z79.82 Long term (current) use of aspirin
CPT/HCPCS: 93312; 93320; 93325; 92960; 80048; J2704; J2001

== ENCOUNTER → 2023-08-23 | Outpatient (CLI) | payer MEDICARE, BC ==
--- NOTE | 2023-08-23 09:47 | MR ---
EXAMINATION TYPE: MR lumbar spine wo con DATE OF EXAM: 08/23/2023 COMPARISON: NONE HISTORY: Lower back pain, into left buttock x 2 mos. TECHNIQUE: T1 and T2 axial and sagittal images of the lumbar spine are submitted. FINDINGS: There is no abnormal signal seen within the visualized spinal cord or paraspinal soft tissu es. Previous aortic surgery noted. There is mild multilevel degenerative disc disease primarily invol ving levels L3-4, L4-5 and L5-S1. Asymmetric atrophy of the right paraspinal musculature. At L1-2 there is no disc herniation or canal stenosis. No foraminal encroachment. There is hypertroph ic facet arthropathy. At L2-3 there is no disc herniation or canal stenosis. No foraminal encroachment. There is hypertroph ic facet arthropathy. At L3-4 there is no disc herniation or canal stenosis. No foraminal encroachment. There is hypertroph ic facet arthropathy. At L4-5 there is no disc herniation or canal stenosis. No foraminal encroachment. There is hypertroph ic facet arthropathy. At L5-S1 there is bilateral spondylolysis with grade 1 anterolisthesis. Mild degenerative disc diseas e with disc desiccation and hypertrophic spurring. There is mild to moderate bilateral foraminal encr oachment with facet arthropathy. No canal stenosis or discrete herniation. IMPRESSION: 1. Bilateral spondylolysis L5 with grade 1 anterolisthesis L5-S1 resulting in [id number] bilate ral foraminal encroachment.
== END | disposition home or self-care (01) ==
LOC: RADMRIMAIN 08:33
PROVIDERS: ATTEND Physical Medicine & Rehabilitation
DX: M43.17 Spondylolisthesis, lumbosacral region (principal); M99.73 Connective tissue and disc stenosis of intervertebral foramina of lumbar region; M47.817 Spondylosis without myelopathy or radiculopathy, lumbosacral region
CPT/HCPCS: 72148